=== PATIENT | female | born 1965 | race Caucasian/White ===

== ENCOUNTER 2018-08-15 08:25 | Emergency (ER) | payer BC ==
[2018-08-15 08:44] VITALS: BP 133/90
[2018-08-15] MEDS ORDERED: diphenhydrAMINE INJ 50 MG/ML VIAL IVP STA (08:48)
[2018-08-15] MEDS ORDERED: PROMETHAZINE INJ 25 MG in SODIUM CHLORIDE 0.9% 50 ML IV STA (08:48)
--- NOTE | 2018-08-15 08:48 | ED Physician Documentation ---
PD HPI NVD - Stated complaint Stated Complaint: N/V - Chief complaint Chief Complaint: Abd Pain - History obtained from History obtained from: Patient - History of Present Illness Timing - onset: Last night Timing - duration: Hours Timing - details: Gradual onset, Still present Associated symptoms: No: Fever, Abdominal pain, Chest pain, Hematemesis, Melena, Hematochezia, Dizzy, Near syncope / syncope Contributing factors: Other (patient states this happens whenever she eats fatty foods, last night had some buttery fish). No: Sick contact, Bad food, Travel, Recent antibiotics, Alcohol use, Anticoagulated, Diabetes Improved by: Other (nothing) Worsened by: Eating Similar symptoms before: No diagnosis (has had this for 3 months every time she eats fatty foods) Recently seen: No: Not recently seen - Treatment prior to arrival Treatment prior to arrival: none - Additonal information Additional information: Denies pain Review of Systems Ten Systems: 10 systems reviewed and negative Constitutional: denies: Fever, Chills GI: reports: Nausea, Vomiting. denies: Abdominal Pain, Diarrhea, Hematemesis, Bloody / black stool : denies: Dysuria Skin: denies: Rash PD PAST MEDICAL HISTORY - Past Medical History Past Medical History: No - Allergies Allergies/Adverse Reactions: Allergies Allergy/AdvReac Type Severity Reaction Status Date / Time No Known Drug Allergies Allergy Verified 08/15/18 08:44 PD ED PE NORMAL - Vitals Vital signs reviewed: Yes - General General: Alert and oriented X 3 - HEENT HEENT: Atraumatic - Neck Neck: Supple, no meningeal sign, No JVD - Cardiac Cardiac: RRR, No murmur - Respiratory Respiratory: No respiratory distress - Abdomen Abdomen: Soft, Non tender, Non distended - Female Female : Deferred - Rectal Rectal: Deferred - Derm Derm: Normal color, Warm and dry, No rash - Extremities Extremities: No edema - Neuro Neuro: Alert and oriented X 3 Eye Opening: Spontaneous Motor: Obeys Commands Verbal: Oriented GCS Score: 15 - Psych Psych: Normal mood, Normal affect Results - Vitals Vitals: Vital Signs - 24 hr 08/15/18 08/15/18 08:43 09:06 Temperature 36.9 C Heart Rate 80 Respiratory 18 18 Rate Blood Pressure 133/90 H O2 Saturation 100 Oxygen O2 Source Room air - Labs Labs: Laboratory Tests 08/15/18 08/15/18 09:02 09:02 WBC 18.1 H RBC 4.83 Hgb 14.6 Hct 43.8 MCV 90.7 MCH 30.2 MCHC 33.3 RDW 13.4 Plt Count 219 MPV 8.5 Neut # (Auto) 16.0 H Lymph # (Auto) 0.8 L [place] # (Auto) 1.1 H Eos # (Auto) 0.1 Baso # (Auto) 0.1 Absolute Nucleated RBC 0.00 Nucleated RBC % 0.0 Sodium 138 Potassium 3.6 Chloride 106 Carbon Dioxide 22 Anion Gap 10.0 BUN 19 Creatinine 0.7 Estimated GFR (MDRD) 87 L Glucose 112 H Calcium 8.8 Total Bilirubin 0.9 AST 27 ALT 27 Alkaline Phosphatase 58 Total Protein 6.3 L Albumin 4.0 Globulin 2.3 Albumin/Globulin Ratio 1.7 Lipase 31 moderate leukocytosis, suspect this is from recurrent vomiting. Pt afebrile with benign abdomen, repeat exam shows no tenderness. US of gallbladder normal. Procedures - General procedure General procedure: RUQ US shows normal gallbladder, no gallstones. GB wall thickness 0.25cm. PD MEDICAL DECISION MAKING - ED course ED course: 53 y/o F with recurrent nausea after eating fatty foods for 3 months. Reports no pain. Vomited several times after eating buttery fish last night. No fever, no diarrhea. DDx includes gastritis, pancreatitis, cholelthiasis, cholecystitis, GERD. Well appearing, soft nontender abdomen. US RUQ not c/w gallbladder disease. LFTs normal, lipase normal . Pt has leukocytosis but suspect this is due to vomiting as she is well appearing, afebrile with a benign exam and otherwise normal labs. Given antiemetics and will reassess. Departure - Departure Disposition: ED [place] Clinical Impression: Nausea & vomiting Qualifiers: Vomiting type: unspecified Vomiting Intractability: non-intractable Qualified Code(s): R11.2 - Nausea with vomiting, unspecified Condition: Stable Record reviewed to determine appropriate education?: Yes Instructions: ED Nausea Vomiting Ch Follow-Up: Jimmy Lerma ARNP [Primary Care Provider] - Comments: Your labs were normal except for a moderately elevated white blood cell count which is likely due to vomiting today. Your liver function, pancreas enzymes and electrolytes and kidney function were all normal. Your US shows a normal gallbladder. You should follow up with your primary care doctor for your symptoms. You can try over the counter benadryl for nausea if you do not wish to take prescription medication. Return to the ED if you develop pain or fever.
[2018-08-15 09:11] LABS: BASOPHILS # (AUTO) 0.1 10^3/uL (0.0-0.1); BASOPHILS % (AUTO) 0.6 %; EOSINOPHILS # (AUTO) 0.1 10^3/uL (0.0-0.7); EOSINOPHILS % (AUTO) 0.4 %; HGB - HEMOGLOBIN 14.6 g/dL (12.0-16.0); LYMPHOCYTES # (AUTO) 0.8 10^3/uL (1.5-3.5); LYMPHOCYTES % (AUTO) 4.4 %; MEAN CORPUSCULAR HEMOGLOBIN 30.2 pg (27.0-31.0); MEAN CORPUSCULAR HGB CONC 33.3 g/dL (32.0-36.0); MEAN CORPUSCULAR VOLUME 90.7 fL (81.0-99.0); MEAN PLATELET VOLUME 8.5 fL (7.9-10.8); MONOCYTES # (AUTO) 1.1 10^3/uL (0.0-1.0); MONOCYTES % (AUTO) 6.3 %; NEUTROPHILS % (AUTO) 88.3 %; PLT - PLATELET COUNT 219 10^3/uL (130-450); RED BLOOD COUNT 4.83 10^6/uL (4.20-5.40); RED CELL DISTRIBUTION WIDTH 13.4 % (12.0-15.0); WHITE BLOOD COUNT 18.1 x10^3/uL (4.8-10.8)
[2018-08-15 09:29] LABS: ALBUMIN/GLOBULIN RATIO 1.7 (1.0-2.2); BILIRUBIN,TOTAL 0.9 mg/dL (0.2-1.0); CALCIUM 8.8 mg/dL (8.5-10.3); CREATININE 0.7 mg/dL (0.4-1.0); TOTAL PROTEIN 6.3 g/dL (6.7-8.2)
== END 2018-08-15 10:13 | disposition home or self-care (01) ==
LOC: ED 08:25
DX: R11.2 Nausea with vomiting, unspecified (principal)
CPT/HCPCS: 36415; 80053; 83690; 85025; 99283; J1200; J7040

== ENCOUNTER 2018-11-05 09:16 | Outpatient (CLI) | payer BC ==
--- NOTE | 2018-11-06 14:59 | Ultrasound Report ---
Reason: RECURRENT LEFT UPPER AND LOWER ABDOMINAL PAIN THAT Procedure Date: 11/05/2018 Accession Number: [id number] / [id number] Procedure: US - Abdomen Complete CPT Code: FULL RESULT: EXAM: ABDOMEN ULTRASOUND EXAM DATE: 11/05/2018 10:24 AM. CLINICAL HISTORY: RECURRENT UPPER AND LOWER ABDOMINAL PAIN WITH NAUSEA AND VOMITING. COMPARISON: None. TECHNIQUE: Real-time scanning was performed with static images obtained. FINDINGS: Liver: Normal in size and echotexture. Simple appearing right hepatic cyst is seen measuring 2.8 x 2 x 2.7 cm, without internal increased vascularity.. Right liver measures 13.7 cm. Main portal vein flow: Hepatopetal. Gallbladder: Normal. No stones, wall thickening, or sonographic Juarez's sign. Biliary System: Common bile duct measures 4.5 mm. No intrahepatic or extrahepatic ductal dilatation. Pancreas: No discrete pancreatic masses are seen. No ductal dilation is evident. Punctate scattered echogenic foci seen within the pancreas of unclear etiology. No peripancreatic fluid is seen. Kidneys: Right: 9.4 cm longitudinally. Increased renal cortical echogenicity. No calculi, contour deforming mass, or hydronephrosis. Left: 9.8 cm longitudinally. Increased cortical echogenicity. No calculi, contour deforming mass, or hydronephrosis. Spleen: 8.3 x 3.4 x 2.8 cm. Splenic volume is 43.4 cc. Normal in size and echotexture. Aorta and Inferior Vena Cava: Unremarkable. Other: None. IMPRESSION: 1. Increased cortical echogenicity of the bilateral kidneys, right greater than left, could reflect nonspecific medical renal disease. No hydronephrosis seen bilaterally. No renal calculi evident. 2. Punctate foci of increased echogenicity seen within the pancreas of unclear etiology. Tiny microcalcifications are a consideration. No focal pancreatic lesion is seen nor peripancreatic fluid. CT could be obtained for further evaluation of this finding as clinically indicated. 3. No cholelithiasis nor evidence for acute cholecystitis. 4. Simple right hepatic cyst is noted. RADIA
== END 2018-11-05 09:17 | disposition home or self-care (01) ==
LOC: DI 09:16
PROVIDERS: ATTEND Nurse Practitioner Family
DX: R11.2 Nausea with vomiting, unspecified (principal); R10.32 Left lower quadrant pain; R10.12 Left upper quadrant pain; K76.89 Other specified diseases of liver
CPT/HCPCS: 76700

== ENCOUNTER 2018-11-25 10:56 | Outpatient (CLI) | payer BC ==
[2018-11-25] MEDS ORDERED: IOVERSOL 320 100 ML VIAL IVP ONE ×2 (11:15→16:42)
[2018-11-25] MEDS ORDERED: IOVERSOL 320 50 ML VIAL ONE (11:15)
[2018-11-25] MEDS ORDERED: IOVERSOL 320 50 ML VIAL PO ONE (16:42)
--- NOTE | 2018-11-27 05:28 | CT Report ---
Reason: NEW ONSET OF RECURRING LUQ PAIN Procedure Date: 11/25/2018 Accession Number: [id number] / [id number] Procedure: CT - ABDOMEN W CPT Code: FULL RESULT: EXAM: CT ABDOMEN WITH CONTRAST (DUAL PHASE CT) EXAM DATE: 11/25/2018 12:08 PM CLINICAL HISTORY: New onset recurring left upper quadrant abdominal pain. COMPARISONS: None. TECHNIQUE: Multiphasic CT of abdomen (pancreas) without and with IV contrast: 80 mL Optiray 320. Post contrast images are acquired during the portal venous as well as delayed phase of contrast enhancement. Enteric contrast: Present. Reconstructions: Coronal and sagittal. In accordance with CT protocol optimization, one or more of the following dose reduction techniques were utilized for this exam: automated exposure control, adjustment of mA and/or KV based on patient size, or use of iterative reconstructive technique. FINDINGS: ABDOMEN: Liver: There are a few scattered hepatic cysts. Dominant abnormality is within segment-6 of the liver, with a lobular configuration, measuring 2.7 cm (image 28 series 3). Stomach/Distal Esophagus: No significant abnormality. Gallbladder: No significant abnormality. Bile Ducts: No significant abnormality. Pancreas: No significant abnormality. Spleen: No significant abnormality. Kidneys: No suspicious solid appearing lesion. No hydronephrosis. Symmetric contrast excretion by the kidneys bilaterally. Adrenals: No significant abnormality. Bowel: No obstruction. Average fecal residual. Visualized portions of the appendix appear normal. Lymph Nodes: No pathologically enlarged nodes. Vasculature: Normal caliber aorta. Fluid: No significant free fluid. Abdominal Wall: No significant abnormality. Other: No significant abnormality. BONES: No suspicious bony lesions. LOWER CHEST: No significant consolidation or effusion. IMPRESSION: 1. No acute abdominal abnormality demonstrated. 2. A few scattered hepatic cysts are noted. RADIA
== END 2018-11-25 10:57 | disposition home or self-care (01) ==
LOC: DI 10:56
PROVIDERS: ATTEND Nurse Practitioner Family
DX: R10.12 Left upper quadrant pain (principal); K76.89 Other specified diseases of liver
CPT/HCPCS: 74160; Q9967

== ENCOUNTER 2019-01-31 21:05 | Emergency (ER) | payer BC ==
[2019-01-31 21:15] VITALS: BP 182/85
[2019-01-31] MEDS ORDERED: BUFFERED LIDOCAINE 10 ML SYRINGE SUBQ STA (21:27)
--- NOTE | 2019-01-31 21:29 | ED Physician Documentation ---
PD HPI UPPER EXT INJURY - Stated complaint Stated Complaint: LT INDEX FINGER LAC - Chief complaint Chief Complaint: Laceration - History obtained from History obtained from: Patient - History of Present Illness Location: Left (She cut herself on the left index finger with a sharp component at home just prior to arrival. She is up-to-date on tetanus.) Review of Systems Constitutional: reports: Reviewed and negative Ears: reports: Reviewed and negative Cardiac: reports: Reviewed and negative Respiratory: reports: Reviewed and negative PD PAST MEDICAL HISTORY - Present Medications Home Medications: Ambulatory Orders Medication Instructions Recorded Confirmed Estrogen Patch 01/31/19 - Allergies Allergies/Adverse Reactions: Allergies Allergy/AdvReac Type Severity Reaction Status Date / Time No Known Drug Allergies Allergy Verified 01/31/19 21:15 PD ED PE NORMAL - Vitals Vital signs reviewed: Yes - General General: Alert and oriented X 3, No acute distress - Extremities Extremities: Other (1 cm laceration on the proximal pulp palmar side of the left index finger without neurovascular compromise) - Neuro Neuro: Alert and oriented X 3, Normal speech Results - Vitals Vitals: Vital Signs - 24 hr 01/31/19 21:12 Temperature 36.6 C Heart Rate 58 L Respiratory 18 Rate Blood Pressure 182/85 H O2 Saturation 100 Oxygen O2 Source Room air PD MEDICAL DECISION MAKING - ED course ED course: On initial evaluation the wound was covered with a Steri-Strip. She wanted me to take it off and consider suturing it. She did not want take the Steri-Strip off until she was numbed and a digital block was done. After that the Steri- Strip was removed and it became clear that it did not need suturing, it was quite sallow, it was irrigated and replaced with Steri-Strips. Departure - Departure Disposition: 01 Home, Self Care Clinical Impression: Finger laceration Qualifiers: Encounter type: initial encounter Finger: index finger Damage to nail status: without damage Foreign body presence: without foreign body Laterality: left Qualified Code(s): S61.211A - Laceration without foreign body of left index finger without damage to nail, initial encounter Condition: Good Record reviewed to determine appropriate education?: Yes Instructions: ED Laceration Ext Sutr Stap Tape Comments: Your blood pressure was elevated today on check into the emergency department. This does not mean that you have hypertension, it is a common phenomenon to come to the emergency department and have elevated blood pressure. I recommend that you see your primary care physician within the week to have it rechecked when you are feeling better. Discharge Date/Time: 01/31/19 21:51
== END 2019-01-31 21:51 | disposition home or self-care (01) ==
LOC: ED 21:05
DX: S61.211A Laceration without foreign body of left index finger without damage to nail, initial encounter (principal); W27.8XXA Contact with other nonpowered hand tool, initial encounter; Y93.89 Activity, other specified; Y92.009 Unspecified place in unspecified non-institutional (private) residence as the place of occurrence of the external cause; R03.0 Elevated blood-pressure reading, without diagnosis of hypertension
CPT/HCPCS: 99282; 99283

== ENCOUNTER 2019-07-14 16:44 | Emergency (ER) | payer BC | END 2019-07-14 17:19 | disposition left against medical advice (07) | LOC: ED 16:44 | DX: Z53.21 Procedure and treatment not carried out due to patient leaving prior to being seen by health care provider (principal) ==

== ENCOUNTER 2019-07-27 08:36 | Emergency (ER) | payer BC ==
[2019-07-27 09:05] VITALS: BP 141/88
[2019-07-27 09:43] LABS: BASOPHILS # (AUTO) 0.1 10^3/uL (0.0-0.1); BASOPHILS % (AUTO) 0.8 %; EOSINOPHILS % (AUTO) 0.1 %; HGB - HEMOGLOBIN 14.4 g/dL (12.0-16.0); LYMPHOCYTES # (AUTO) 1.3 10^3/uL (1.5-3.5); LYMPHOCYTES % (AUTO) 17.6 %; MEAN CORPUSCULAR HEMOGLOBIN 31.2 pg (27.0-31.0); MEAN CORPUSCULAR HGB CONC 33.3 g/dL (32.0-36.0); MEAN CORPUSCULAR VOLUME 93.5 fL (81.0-99.0); MEAN PLATELET VOLUME 9.7 fL (7.9-10.8); MONOCYTES # (AUTO) 0.6 10^3/uL (0.0-1.0); MONOCYTES % (AUTO) 8.3 %; NEUTROPHILS # (AUTO) 5.1 10^3/uL (1.5-6.6); NEUTROPHILS % (AUTO) 72.5 %; PLT - PLATELET COUNT 316 10^3/uL (130-450); RED BLOOD COUNT 4.62 10^6/uL (4.20-5.40); RED CELL DISTRIBUTION WIDTH 12.5 % (12.0-15.0); WHITE BLOOD COUNT 7.1 x10^3/uL (4.8-10.8)
[2019-07-27 09:48] LABS: BILIRUBIN,URINE NEGATIVE (NEGATIVE); CLARITY,URINE CLEAR (CLEAR); GLUCOSE, URINE (UA) NEGATIVE (NEGATIVE); KETONES,URINE (UA) NEGATIVE (NEGATIVE); LEUKOCYTE ESTERASE, URINE TRACE (NEGATIVE); NITRITE,URINE NEGATIVE (NEGATIVE); OCCULT BLOOD,URINE NEGATIVE (NEGATIVE); PROTEIN,URINE NEGATIVE (NEGATIVE); UROBILINOGEN,URINE 0.2 (NORMAL) E.U./dL (NORMAL)
--- NOTE | 2019-07-27 09:51 | ED Physician Documentation ---
PD HPI NVD - Stated complaint Stated Complaint: POST OP COMPLICATIONS - Chief complaint Chief Complaint: General - History obtained from History obtained from: Patient - History of Present Illness Timing - onset: How many months ago (1-2 months of progressive weight los and general weakness. The weakness has become more notable in the past 4-5 days, since having arthroscopic surgery left hip on the . Has crutches to minimize weight bearing on left hip and is having problems using them due to poor arm strength and general fatigue. 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 Has taken protein supplements. Medications: had been taking Celebrex for hip pain and added Pepcid to it so not to irritate the stomach. Had those for few weeks.) Contributing factors: Other (denies diarrhea. Her has not experienced any unusual weight loss nor bowel changes.). No: Sick contact, Bad food, Travel, Recent antibiotics Worsened by: No: Eating Similar symptoms before: Has not had sx before Recently seen: Surgery (She had outpatient arthroscopic hip surgery for torn labrum and some osteophyte bone buildup. This was on the and she felt fatigued afterward but felt expected that she would. However she is continued with fatigue more so than preoperatively so is considerably increased over the baseline past month. However this has been a progressive problem over the past month or 2 of general weight loss and fatigue.) Review of Systems Constitutional: reports: Fatigue, Weight Loss. denies: Fever, Chills, Myalgias, Sweats Nose: denies: Rhinorrhea / runny nose, Congestion Throat: denies: Sore throat Cardiac: denies: Chest pain / pressure, Palpitations Respiratory: denies: Cough GI: denies: Abdominal Pain, Nausea, Vomiting, Diarrhea, Bloody / black stool : denies: Dysuria, Frequency Skin: denies: Rash, Lesions Neurologic: reports: Generalized weakness. denies: Focal weakness, Numbness, Altered mental status, Headache Endocrine: reports: Weight loss. denies: Weight gain, Easy bruising / bleeding Immunocompromised: denies: Immunocompromised PD PAST MEDICAL HISTORY - Past Medical History Past Medical History: Yes Cardiovascular: None Respiratory: None Neuro: Migraines Endocrine/Autoimmune: None GI: GERD : None HEENT: None Psych: Depression, Anxiety Musculoskeletal: Other Derm: None Other Past Medical History: Acetabular-femoral impingement - Past Surgical History Past Surgical History: Yes Ortho: Arthroscopic surgery /[employer]: Hysterectomy - Present Medications Home Medications: Ambulatory Orders Medication Instructions Recorded Confirmed Estrogen Patch 01/31/19 - Allergies Allergies/Adverse Reactions: Allergies Allergy/AdvReac Type Severity Reaction Status Date / Time No Known Drug Allergies Allergy Verified 01/31/19 21:15 - Social History Does the pt smoke?: No Smoking Status: Never smoker Does the pt drink ETOH?: No Does the pt have substance abuse?: No - Immunizations Immunizations are current?: Yes PD ED PE NORMAL - Vitals Vital signs reviewed: Yes - General General: Alert and oriented X 3, Well developed/nourished, Other (very thin ap pearing. ) - HEENT HEENT: Moist mucous membranes, Pharynx benign - Neck Neck: Supple, no meningeal sign, No adenopathy, Thyroid normal - Cardiac Cardiac: RRR, No murmur - Respiratory Respiratory: Clear bilaterally - Abdomen Abdomen: Normal bowel sounds, Soft, Non tender, Non distended, No organomegaly - Female Female : Deferred - Rectal Rectal: Deferred - Back Back: No CVA TTP - Derm Derm: Normal color, Warm and dry - Extremities Extremities: No edema, Other (The left hip shows arthroscopic incisions with Tegaderm over them. There is some mild yellow to greenish bruising in the area. No redness or swelling to suggest infection.) - Neuro Neuro: Alert and oriented X 3, No motor deficit, Normal speech Eye Opening: Spontaneous Motor: Obeys Commands Verbal: Oriented GCS Score: 15 Results - Vitals Vitals: Vital Signs - 24 hr 07/27/19 07/27/19 08:42 08:49 Temperature 36.9 C 36.8 C Heart Rate 108 H 108 H Respiratory 20 20 Rate Blood Pressure 161/97 H 141/88 H O2 Saturation 99 99 Oxygen O2 Source Room air - Labs Labs: Laboratory Tests 07/27/19 07/27/19 07/27/19 09:30 09:35 09:35 WBC 7.1 RBC 4.62 Hgb 14.4 Hct 43.2 MCV 93.5 MCH 31.2 H MCHC 33.3 RDW 12.5 Plt Count 316 MPV 9.7 Neut # (Auto) 5.1 Lymph # (Auto) 1.3 L [place] # (Auto) 0.6 Eos # (Auto) 0.0 Baso # (Auto) 0.1 Absolute Nucleated RBC 0.00 Nucleated RBC % 0.0 ESR Sodium 138 Potassium 3.4 L Chloride 103 Carbon Dioxide 28 Anion Gap 7.0 BUN 19 Creatinine 0.6 Estimated GFR (MDRD) 104 Glucose 102 H Calcium 8.9 Magnesium 2.4 Total Bilirubin 0.7 AST 17 ALT 17 Alkaline Phosphatase 62 Total Creatine Kinase 63 Total Protein 6.6 L Albumin 4.2 Globulin 2.4 Albumin/Globulin Ratio 1.8 Lipase 35 CA 125 Antigen Vitamin B12 TSH Cortisol Urine Color YELLOW Urine Clarity CLEAR Urine pH 7.0 Ur Specific [place] <=1.005 Urine Protein NEGATIVE Urine Glucose (UA) NEGATIVE Urine Ketones NEGATIVE Urine Occult Blood NEGATIVE Urine Nitrite NEGATIVE Urine Bilirubin NEGATIVE Urine Urobilinogen 0.2 (NORMAL) Ur Leukocyte Esterase TRACE H Urine RBC 0-5 Urine WBC 0-3 Ur Squamous Epith Cells FEW Squamous Urine Bacteria Few Ur Microscopic Review INDICATED Urine Culture Comments INDICATED 07/27/19 07/27/19 09:35 09:35 WBC RBC Hgb Hct MCV MCH MCHC RDW Plt Count MPV Neut # (Auto) Lymph # (Auto) [place] # (Auto) Eos # (Auto) Baso # (Auto) Absolute Nucleated RBC Nucleated RBC % ESR 4 Sodium Potassium Chloride Carbon Dioxide Anion Gap BUN Creatinine Estimated GFR (MDRD) Glucose Calcium Magnesium Total Bilirubin AST ALT Alkaline Phosphatase Total Creatine Kinase Total Protein Albumin Globulin Albumin/Globulin Ratio Lipase CA 125 Antigen 9.4 Vitamin B12 2163 H TSH 1.43 Cortisol 8.0 Urine Color Urine Clarity Urine pH Ur Specific [place] Urine Protein Urine Glucose (UA) Urine Ketones Urine Occult Blood Urine Nitrite Urine Bilirubin Urine Urobilinogen Ur Leukocyte Esterase Urine RBC Urine WBC Ur Squamous Epith Cells Urine Bacteria Ur Microscopic Review Urine Culture Comments PD MEDICAL DECISION MAKING - ED course Complexity details: reviewed results, re-evaluated patient (unclear cause of her weight loss and weakness. ), considered differential (Unusual and unwanted weight loss over the last month or more totaling about 19 pounds. She states at baseline she is usually thin but is commonly about 115 pounds. That has been her baseline weight for a long time without much fluctuation. We will look for metabolic disorders such as electrolyte problems. Endocrine processes such as thyroid or pituitary correction adrenal problems as well. Consider malabsorption but she already has a gluten free diet. She does not have diarrhea to suggest chronic losses that way. Can check vitamin levels on some of the mario ones such as B12 and vitamin D. These could be used as markers for other vitamin deficiencies. She does not have any neurologic symptoms so I would less likely think of heavy metal problems and she states they have had their well water checked in the past with a slightly high arsenic. Her has not had any similar symptoms though.), d/w patient Departure - Departure Disposition: Home, Self Care Clinical Impression: Weight loss, abnormal, Generalized weakness, Status post hip surgery Condition: Stable Record reviewed to determine appropriate education?: Yes Follow-Up: Jimmy Lerma ARNP [Primary Care Provider] - Comments: Stop the Celebrex. Stay well-hydrated. Add a mild potassium supplement as your potassium was minimally below normal. Follow-up with your primary care regarding further evaluation of the weight loss. No obvious acute process at this time based on your initial lab tests. Stool studies would probably be next indicated to look for infection or malabsorption. Discharge Date/Time: 07/27/19 11:13
[2019-07-27 09:55] LABS: ALBUMIN 4.2 g/dL (3.2-5.5); ALBUMIN/GLOBULIN RATIO 1.8 (1.0-2.2); BILIRUBIN,TOTAL 0.7 mg/dL (0.2-1.0); CALCIUM 8.9 mg/dL (8.5-10.3); CREATININE 0.6 mg/dL (0.4-1.0); MAGNESIUM 2.4 mg/dL (1.7-2.8); TOTAL PROTEIN 6.6 g/dL (6.7-8.2)
[2019-07-27 10:10] LABS: CA 125 9.4 U/mL (0.0-35.0)
[2019-07-27 10:12] LABS: THYROID STIMULATING HORMONE 1.43 uIU/mL (0.34-5.60)
[2019-07-27 10:24] LABS: BACTERIA,URINE Few /HPF (None Seen); RBC,URINE 0-5 /HPF (0-5); SQUAMOUS EPITHELIAL CELL,UR FEW Squamous (<= Few)
== END 2019-07-27 11:13 | disposition home or self-care (01) ==
LOC: ED 08:36
DX: R63.4 Abnormal weight loss (principal); R53.1 Weakness; R53.83 Other fatigue; Z98.890 Other specified postprocedural states
CPT/HCPCS: 36415; 80053; 81001; 81003; 82533; 82550; 82607; 82652; 82705; 83690; 83735; 84443; 85025; 85651; 86304; 87086; 99283; 99284

== ENCOUNTER 2019-08-24 16:42 | Emergency (ER) | payer BC ==
[2019-08-24 17:14] LABS: BASOPHILS # (AUTO) 0.1 10^3/uL (0.0-0.1); BASOPHILS % (AUTO) 0.9 %; EOSINOPHILS # (AUTO) 0.2 10^3/uL (0.0-0.7); EOSINOPHILS % (AUTO) 2.2 %; HGB - HEMOGLOBIN 13.8 g/dL (12.0-16.0); LYMPHOCYTES # (AUTO) 1.8 10^3/uL (1.5-3.5); LYMPHOCYTES % (AUTO) 23.2 %; MEAN CORPUSCULAR HEMOGLOBIN 31.4 pg (27.0-31.0); MEAN PLATELET VOLUME 9.3 fL (7.9-10.8); MONOCYTES # (AUTO) 0.6 10^3/uL (0.0-1.0); MONOCYTES % (AUTO) 7.6 %; NEUTROPHILS # (AUTO) 5.1 10^3/uL (1.5-6.6); NEUTROPHILS % (AUTO) 65.5 %; PLT - PLATELET COUNT 316 10^3/uL (130-450); RED CELL DISTRIBUTION WIDTH 12.8 % (12.0-15.0); WHITE BLOOD COUNT 7.9 x10^3/uL (4.8-10.8)
[2019-08-24 17:30] LABS: ACETAMINOPHEN < 10 ug/mL (10-30); ALBUMIN/GLOBULIN RATIO 1.5 (1.0-2.2); ALKALINE PHOSPHATASE 66 IU/L (42-121); ALT ALANINE AMINOTRANSFERASE 18 IU/L (10-60); AST ASPARTATE AMINOTRANSFERASE 18 IU/L (10-42); BILIRUBIN,TOTAL 0.6 mg/dL (0.2-1.0); BUN - BLOOD UREA NITROGEN 19 mg/dL (6-20); CARBON DIOXIDE - CO2 28 mmol/L (21-32); CHLORIDE 100 mmol/L (101-111); CREATININE 0.7 mg/dL (0.4-1.0); GLUCOSE 105 mg/dL (70-100); LIPASE 39 U/L (22-51); SALICYLATE < 6.0 mg/dL; SODIUM 137 mmol/L (135-145); TOTAL PROTEIN 6.7 g/dL (6.7-8.2)
[2019-08-24 18:01] LABS: MUDS CUTOFF CONCENTRATIONS CUTOFF CONC BELOW:
--- NOTE | 2019-08-24 18:01 | ED Physician Documentation ---
PD HPI MHE - Stated complaint Stated Complaint: MHE - Chief complaint Chief Complaint: MHE - History obtained from History obtained from: Patient, Family - History of Present Illness Primary symptom: Depression, Anxiety, Medical clearance Timing - onset: How many months ago (3 months, worse over the past week) Pain level max: 0 Pain level now: 0 Contributing factors: No: Legal, Substance abuse - ETOH, Substance abuse - drugs, Off meds Recently seen: Clinic - Additional information Additional information: 54-year-old female states she has had increasing anxiety over the past few months. States that she feels like it is interfering with her daily life now. She states she does not want to be suicidal, but occasionally feels suicidal. She tried Wellbutrin, but states that it made her suicidal. She had been on Klonopin as well, but she states she takes only 1/8 of a pill. She saw a psychiatrist yesterday in [place] who recommends that she be admitted to a psychiatric hospital for stabilization. Review of Systems Ten Systems: 10 systems reviewed and negative Constitutional: denies: Fever, Chills Nose: denies: Rhinorrhea / runny nose, Congestion Cardiac: denies: Chest pain / pressure Respiratory: denies: Cough GI: denies: Vomiting, Diarrhea : denies: Now EGA Skin: denies: Rash Musculoskeletal: denies: Neck pain, Back pain Neurologic: denies: Headache PD PAST MEDICAL HISTORY - Past Medical History Cardiovascular: None Respiratory: None Neuro: Migraines Endocrine/Autoimmune: None GI: GERD : None HEENT: None Psych: Depression, Anxiety Musculoskeletal: Other Derm: None - Past Surgical History Past Surgical History: Yes 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 - Present Medications Home Medications: Ambulatory Orders Medication Instructions Recorded Confirmed Estrogen Patch 01/31/19 - Allergies Allergies/Adverse Reactions: Allergies Allergy/AdvReac Type Severity Reaction Status Date / Time No Known Drug Allergies Allergy Verified 01/31/19 21:15 - Social History Does the pt smoke?: No Smoking Status: Never smoker Does the pt drink ETOH?: No Does the pt have substance abuse?: No - Immunizations Immunizations are current?: Yes Results - Vitals Vitals: Vital Signs - 24 hr 08/24/19 08/24/19 16:49 20:26 Temperature 36.9 C 36.5 C Heart Rate 88 90 Respiratory 18 18 Rate Blood Pressure 163/104 H 150/110 H O2 Saturation 99 100 Oxygen O2 Source Room air - EKG (time done) 1806 Rate: Rate (enter#) (73) Rhythm: NSR [place]: Normal Intervals: Normal [place] QRS: Normal Ischemia: Normal ST segments - Labs Labs: Laboratory Tests 08/24/19 08/24/19 08/24/19 17:09 17:09 17:09 WBC 7.9 RBC 4.40 Hgb 13.8 Hct 41.8 MCV 95.0 MCH 31.4 H MCHC 33.0 RDW 12.8 Plt Count 316 MPV 9.3 Neut # (Auto) 5.1 Lymph # (Auto) 1.8 [place] # (Auto) 0.6 Eos # (Auto) 0.2 Baso # (Auto) 0.1 Absolute Nucleated RBC 0.00 Nucleated RBC % 0.0 Sodium 137 Potassium 4.0 Chloride 100 L Carbon Dioxide 28 Anion Gap 9.0 BUN 19 Creatinine 0.7 Estimated GFR (MDRD) 87 L Glucose 105 H Calcium 9.0 Total Bilirubin 0.6 AST 18 ALT 18 Alkaline Phosphatase 66 Total Protein 6.7 Albumin 4.0 Globulin 2.7 Albumin/Globulin Ratio 1.5 Lipase 39 TSH 2.10 Urine Color Urine Clarity Urine pH Ur Specific [place] Urine Protein Urine Glucose (UA) Urine Ketones Urine Occult Blood Urine Nitrite Urine Bilirubin Urine Urobilinogen Ur Leukocyte Esterase Urine RBC Urine WBC Ur Squamous Epith Cells Urine Bacteria Ur Microscopic Review Urine Culture Comments Salicylates < 6.0 Urine Opiates Screen Ur Oxycodone Screen Urine Methadone Screen Ur Propoxyphene Screen Acetaminophen < 10 L Ur Barbiturates Screen Ur Tricyclics Screen Ur Phencyclidine Scrn Ur Amphetamine Screen U Methamphetamines Scrn U Benzodiazepines Scrn Urine Cocaine Screen U Cannabinoids Screen Ethyl Alcohol < 5.0 08/24/19 17:56 WBC RBC Hgb Hct MCV MCH MCHC RDW Plt Count MPV Neut # (Auto) Lymph # (Auto) [place] # (Auto) Eos # (Auto) Baso # (Auto) Absolute Nucleated RBC Nucleated RBC % Sodium Potassium Chloride Carbon Dioxide Anion Gap BUN Creatinine Estimated GFR (MDRD) Glucose Calcium Total Bilirubin AST ALT Alkaline Phosphatase Total Protein Albumin Globulin Albumin/Globulin Ratio Lipase TSH Urine Color YELLOW Urine Clarity CLEAR Urine pH 7.0 Ur Specific [place] <=1.005 Urine Protein NEGATIVE Urine Glucose (UA) NEGATIVE Urine Ketones NEGATIVE Urine Occult Blood NEGATIVE Urine Nitrite NEGATIVE Urine Bilirubin NEGATIVE Urine Urobilinogen 0.2 (NORMAL) Ur Leukocyte Esterase MODERATE H Urine RBC None Seen Urine WBC 6-10 H Ur Squamous Epith Cells MOD Squamous H Urine Bacteria Rare Ur Microscopic Review INDICATED Urine Culture Comments NOT INDICATED Salicylates Urine Opiates Screen NEGATIVE Ur Oxycodone Screen NEGATIVE Urine Methadone Screen NEGATIVE Ur Propoxyphene Screen NEGATIVE Acetaminophen Ur Barbiturates Screen NEGATIVE Ur Tricyclics Screen NEGATIVE Ur Phencyclidine Scrn NEGATIVE Ur Amphetamine Screen NEGATIVE U Methamphetamines Scrn NEGATIVE U Benzodiazepines Scrn NEGATIVE Urine Cocaine Screen NEGATIVE U Cannabinoids Screen NEGATIVE Ethyl Alcohol PD MEDICAL DECISION MAKING - ED course Complexity details: reviewed results, re-evaluated patient, considered differential, d/w patient ED course: Paperwork received from the patient's psychiatrist. This was reviewed and was sent to the psychiatric facilities for voluntary placement. She does feel better after Xanax here. Patient is medically clear for psychiatric care. Patient will be signed out to the [facility] emergency department physician awaiting final disposition. She is cooperative here. This document was made in part using voice recognition software. While efforts are made to proofread this document, sound alike and grammatical errors may occur. Departure - Departure Clinical Impression: Anxiety, Mood disorder Depression Qualifiers: Depression Type: unspecified Qualified Code(s): F32.9 - Major depressive disorder, single episode, unspecified Condition: Stable
[2019-08-24] MEDS ORDERED: ALPRAZolam 0.25 MG TABLET PO STA (18:03)
[2019-08-24 18:04] LABS: BILIRUBIN,URINE NEGATIVE (NEGATIVE); GLUCOSE, URINE (UA) NEGATIVE (NEGATIVE); KETONES,URINE (UA) NEGATIVE (NEGATIVE); LEUKOCYTE ESTERASE, URINE MODERATE (NEGATIVE); NITRITE,URINE NEGATIVE (NEGATIVE); OCCULT BLOOD,URINE NEGATIVE (NEGATIVE); PROTEIN,URINE NEGATIVE (NEGATIVE); UROBILINOGEN,URINE 0.2 (NORMAL) E.U./dL (NORMAL)
[2019-08-24 18:10] LABS: CLARITY,URINE CLEAR (CLEAR)
[2019-08-24 18:17] LABS: BACTERIA,URINE Rare /HPF (None Seen); RBC,URINE None Seen /HPF (0-5); SQUAMOUS EPITHELIAL CELL,UR MOD Squamous (<= Few)
[2019-08-24 18:18] LABS: AMPHETAMINE SCREEN,URINE NEGATIVE (NEGATIVE); BENZODIAZEPINES SCREEN, URINE NEGATIVE (NEGATIVE); COCAINE SCREEN URINE NEGATIVE (NEGATIVE); METHADONE SCREEN, URINE NEGATIVE (NEGATIVE); METHAMPHETAMINES SCREEN, URINE NEGATIVE (NEGATIVE); OPIATE SCREEN, URINE NEGATIVE (NEGATIVE); OXYCODONE SCREEN, URINE NEGATIVE (NEGATIVE); PROPOXYPHENE SCREEN, URINE NEGATIVE (NEGATIVE); TRICYCLIC ANTIDEPRESSANT,URINE NEGATIVE (NEGATIVE)
[2019-08-24] MEDS ORDERED: cloNIDine 0.1 MG TABLET PO STA (22:55)
[2019-08-24] MEDS ORDERED: amLODIPine 5 MG TABLET PO STA (23:06)
[2019-08-25 00:31] VITALS: BP 151/99
--- NOTE | 2019-08-25 22:00 | ED Physician Documentation ---
ED Addendum - Addendum Addendum: 08/25/19 21:58 Received sign out from Dr. Simons. Voluntary inpatient placement at appropriate mental health facility is being pursued by ED RN. Eventually, it was determined by ED RN that no beds available at these facilities with the exception of [facility]. Subsequently, [facility] called back and felt that the patient was not appropriate for their facility due to lack of SI. Rashaad Beltran expressed concern regarding patient's high blood pressure readings. I ordered clonidine, but patient expressed concern in how this medication is processed and her genetics. Amlodipine was then suggested and she is agreeable to take this medication. Her blood pressure improved, but Rashaad Devin subsequently set a parameter of DBP<90. At this point, I had a long conversation with the patient, updated her on the above. My suggestion was redose xanax (as her anxiety is likely contributing to her elevated BP readings), and possibly a second dose of amlodipine. She tells me she would refuse to go to [facility] even if they were to accept her. She says her psychiatrist had discussed starting her on a medication that would require following "blood levels" (per patient), and she is concerned that [facility] would be unable to perform serum testing. Additionally, she was worried about reviews of the facility she had read on line. She denies SI to me and, although anxious, has a logical thought process including awareness of the anxiety and the problems it presents for her, her spouse, and her doctor. She says she had been able to control her anxiety through exercise (as a distraction), but she recently reinjured her hip and this has been preventing her from exercise. She also has had much difficulty in obtaining f/u for her hip problem because of COVID restrictions. She feels this is a main factor in her anxiety being out of control of late. I recommended that she stay in ED until the AM; SW would then be consulted, beds at facilities would possibly become available as patients are discharged, and her doctor could be contacted by SW to discuss possible other arrangements if inpatient beds were still unavailable. Eventually, patient requested discharge home and says her is returning to ED to pick her up. She repeatedly tells me she feels safe going home. I do not have any reason to hold patient against her wishes and she expresses understanding that she is encouraged to return at any time for reevaluation
--- NOTE | 2019-08-27 15:36 | ED Physician Documentation ---
PD ED PE NORMAL - Vitals Vital signs reviewed: Yes - General General: Alert and oriented X 3, Other (Patient is very anxious appearing) - HEENT HEENT: PERRL, Moist mucous membranes, Pharynx benign - Neck Neck: Supple, no meningeal sign - Cardiac Cardiac: RRR - Respiratory Respiratory: No respiratory distress, Clear bilaterally - Abdomen Abdomen: Soft, Non tender, Non distended - Derm Derm: Warm and dry - Extremities Extremities: No edema, No calf tenderness / cord - Neuro Neuro: Alert and oriented X 3 - Psych Psych: Other (Very anxious)
== END 2019-08-25 02:33 | disposition home or self-care (01) ==
LOC: ED 16:42
DX: F41.9 Anxiety disorder, unspecified (principal); F39 Unspecified mood [affective] disorder; F32.9 Major depressive disorder, single episode, unspecified; R03.0 Elevated blood-pressure reading, without diagnosis of hypertension
CPT/HCPCS: 36415; 80320; 80329; 81001; 83690; 93005; 99283; 99284; A9270; 80053; 80306; 80307; 81003; 84443; 85025; 87086

== ENCOUNTER 2019-08-27 08:31 | Emergency (ER) | payer BC ==
--- NOTE | 2019-08-27 08:59 | ED Physician Documentation ---
PD HPI MHE - Stated complaint Stated Complaint: PANIC ATTACK - Chief complaint Chief Complaint: MHE - History obtained from History obtained from: Patient, Family - History of Present Illness Primary symptom: Anxiety Timing - onset: How many weeks ago (Ongoing for the past several weeks) Pain level max: 0 Pain level now: 0 - Additional information Additional information: 54-year-old female presents to the emergency department stating that she has a longstanding history of anxiety, worsening over the past several weeks. Nothing makes it better or worse. She tried to take Ativan this morning without relief. She feels that she is out of control and cannot calm herself down. She denies feeling suicidal or homicidal. She was seen here recently for same, but was having issues finding voluntary placement, therefore she elected to go home. She is accompanied by her today. 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 - Present Medications Home Medications: Ambulatory Orders Medication Instructions Recorded Confirmed Estrogen Patch 01/31/19 - Allergies Allergies/Adverse Reactions: Allergies Allergy/AdvReac Type Severity Reaction Status Date / Time No Known Drug Allergies Allergy Verified 08/27/19 08:48 - Social History Does the pt smoke?: No Smoking Status: Never smoker Does the pt drink ETOH?: No Does the pt have substance abuse?: No - Immunizations Immunizations are current?: Yes PD ED PE NORMAL - Vitals Vital signs reviewed: Yes - General General: Alert and oriented X 3, No acute distress, Well developed/nourished - HEENT HEENT: PERRL, Moist mucous membranes - Neck Neck: Supple, no meningeal sign - Cardiac Cardiac: RRR - Respiratory Respiratory: No respiratory distress, Clear bilaterally - Abdomen Abdomen: Soft, Non tender, Non distended - Derm Derm: Warm and dry - Extremities Extremities: No deformity - Neuro Neuro: Alert and oriented X 3 - Psych Psych: Other (Patient is very anxious and tearful.) Results - Vitals Vitals: Vital Signs - 24 hr 08/27/19 08/27/19 08/27/19 08:43 08:48 10:48 Temperature 36.9 C Heart Rate 112 H 109 H 89 Respiratory 22 16 16 Rate Blood Pressure 138/102 H 146/95 H 142/65 H O2 Saturation 100 100 100 08/27/19 08/27/19 08/27/19 13:27 13:32 15:18 Temperature 37.1 C Heart Rate 83 82 66 Respiratory 16 12 16 Rate Blood Pressure 144/93 H 144/93 H 134/90 H O2 Saturation 99 99 99 08/27/19 17:16 Temperature 37.1 C Heart Rate 84 Respiratory 12 Rate Blood Pressure 133/96 H O2 Saturation 100 Oxygen O2 Source Room air - EKG (time done) 0909 Rate: Rate (enter#) (99) Rhythm: NSR [place]: Normal Intervals: Normal [place] QRS: Normal Ischemia: Normal ST segments - Labs Labs: Laboratory Tests 08/27/19 08/27/19 08/27/19 08:52 08:52 09:04 WBC 7.4 RBC 4.39 Hgb 13.7 Hct 40.3 MCV 91.8 MCH 31.2 H MCHC 34.0 RDW 12.4 Plt Count 330 MPV 9.1 Neut # (Auto) 5.6 Lymph # (Auto) 1.3 L [place] # (Auto) 0.4 Eos # (Auto) 0.0 Baso # (Auto) 0.1 Absolute Nucleated RBC 0.00 Nucleated RBC % 0.0 Sodium Potassium Chloride Carbon Dioxide Anion Gap BUN Creatinine Estimated GFR (MDRD) Glucose Calcium Total Bilirubin AST ALT Alkaline Phosphatase Total Protein Albumin Globulin Albumin/Globulin Ratio Lipase TSH Urine Color YELLOW Urine Clarity HAZY Urine pH 8.0 H Ur Specific [place] 1.010 Urine Protein NEGATIVE Urine Glucose (UA) NEGATIVE Urine Ketones NEGATIVE Urine Occult Blood NEGATIVE Urine Nitrite NEGATIVE Urine Bilirubin NEGATIVE Urine Urobilinogen 0.2 (NORMAL) Ur Leukocyte Esterase LARGE H Urine RBC 0-5 Urine WBC 6-10 H Ur Squamous Epith Cells FEW Squamous Urine Bacteria Few Ur Microscopic Review INDICATED Urine Culture Comments INDICATED Urine HCG, Qual NEGATIVE Salicylates Urine Opiates Screen NEGATIVE Ur Oxycodone Screen NEGATIVE Urine Methadone Screen NEGATIVE Ur Propoxyphene Screen NEGATIVE Acetaminophen Ur Barbiturates Screen NEGATIVE Ur Tricyclics Screen NEGATIVE Ur Phencyclidine Scrn NEGATIVE Ur Amphetamine Screen NEGATIVE U Methamphetamines Scrn NEGATIVE U Benzodiazepines Scrn NEGATIVE Urine Cocaine Screen NEGATIVE U Cannabinoids Screen NEGATIVE Ethyl Alcohol 08/27/19 08/27/19 09:04 09:04 WBC RBC Hgb Hct MCV MCH MCHC RDW Plt Count MPV Neut # (Auto) Lymph # (Auto) [place] # (Auto) Eos # (Auto) Baso # (Auto) Absolute Nucleated RBC Nucleated RBC % Sodium 139 Potassium 3.3 L Chloride 105 Carbon Dioxide 27 Anion Gap 7.0 BUN 17 Creatinine 0.6 Estimated GFR (MDRD) 104 Glucose 119 H Calcium 8.9 Total Bilirubin 0.5 AST 18 ALT 19 Alkaline Phosphatase 60 Total Protein 6.7 Albumin 4.3 Globulin 2.4 Albumin/Globulin Ratio 1.8 Lipase 34 TSH 2.93 Urine Color Urine Clarity Urine pH Ur Specific [place] Urine Protein Urine Glucose (UA) Urine Ketones Urine Occult Blood Urine Nitrite Urine Bilirubin Urine Urobilinogen Ur Leukocyte Esterase Urine RBC Urine WBC Ur Squamous Epith Cells Urine Bacteria Ur Microscopic Review Urine Culture Comments Urine HCG, Qual Salicylates < 6.0 Urine Opiates Screen Ur Oxycodone Screen Urine Methadone Screen Ur Propoxyphene Screen Acetaminophen < 10 L Ur Barbiturates Screen Ur Tricyclics Screen Ur Phencyclidine Scrn Ur Amphetamine Screen U Methamphetamines Scrn U Benzodiazepines Scrn Urine Cocaine Screen U Cannabinoids Screen Ethyl Alcohol < 5.0 PD MEDICAL DECISION MAKING - ED course Complexity details: reviewed results, re-evaluated patient, considered differential, d/w patient, d/w [employer] distribution consultant ED course: Patient feels better after Ativan in the emergency department. She is medically clear for psychiatric care. Social work consulted. Patient was accepted to [facility] for further evaluation and care. She also has a UTI and was started on Macrobid for this. Patient accepted to [facility] by Dr. Erik Cobb at 1730. COBRA forms completed. Patient will be transferred. This document was made in part using voice recognition software. While efforts are made to proofread this document, sound alike and grammatical errors may occur. Departure - Departure Disposition: [facility] Hosp/Unit DC/Xfer Clinical Impression: Anxiety UTI (urinary tract infection) Qualifiers: Urinary tract infection type: acute cystitis Hematuria presence: without hematuria Qualified Code(s): N30.00 - Acute cystitis without hematuria Condition: Stable
[2019-08-27 09:03] LABS: MUDS CUTOFF CONCENTRATIONS CUTOFF CONC BELOW:
[2019-08-27 09:06] LABS: BILIRUBIN,URINE NEGATIVE (NEGATIVE); GLUCOSE, URINE (UA) NEGATIVE (NEGATIVE); KETONES,URINE (UA) NEGATIVE (NEGATIVE); LEUKOCYTE ESTERASE, URINE LARGE (NEGATIVE); NITRITE,URINE NEGATIVE (NEGATIVE); OCCULT BLOOD,URINE NEGATIVE (NEGATIVE); PROTEIN,URINE NEGATIVE (NEGATIVE); UROBILINOGEN,URINE 0.2 (NORMAL) E.U./dL (NORMAL)
[2019-08-27 09:10] LABS: CLARITY,URINE HAZY (CLEAR); HCG UR QUAL NEGATIVE
[2019-08-27 09:12] LABS: BASOPHILS # (AUTO) 0.1 10^3/uL (0.0-0.1); BASOPHILS % (AUTO) 0.7 %; EOSINOPHILS % (AUTO) 0.3 %; HGB - HEMOGLOBIN 13.7 g/dL (12.0-16.0); LYMPHOCYTES # (AUTO) 1.3 10^3/uL (1.5-3.5); MEAN CORPUSCULAR HEMOGLOBIN 31.2 pg (27.0-31.0); MEAN CORPUSCULAR VOLUME 91.8 fL (81.0-99.0); MEAN PLATELET VOLUME 9.1 fL (7.9-10.8); MONOCYTES # (AUTO) 0.4 10^3/uL (0.0-1.0); MONOCYTES % (AUTO) 5.5 %; NEUTROPHILS # (AUTO) 5.6 10^3/uL (1.5-6.6); NEUTROPHILS % (AUTO) 75.1 %; PLT - PLATELET COUNT 330 10^3/uL (130-450); RED BLOOD COUNT 4.39 10^6/uL (4.20-5.40); RED CELL DISTRIBUTION WIDTH 12.4 % (12.0-15.0); WHITE BLOOD COUNT 7.4 x10^3/uL (4.8-10.8)
[2019-08-27 09:20] LABS: AMPHETAMINE SCREEN,URINE NEGATIVE (NEGATIVE); BENZODIAZEPINES SCREEN, URINE NEGATIVE (NEGATIVE); COCAINE SCREEN URINE NEGATIVE (NEGATIVE); METHADONE SCREEN, URINE NEGATIVE (NEGATIVE); METHAMPHETAMINES SCREEN, URINE NEGATIVE (NEGATIVE); OPIATE SCREEN, URINE NEGATIVE (NEGATIVE); OXYCODONE SCREEN, URINE NEGATIVE (NEGATIVE); PROPOXYPHENE SCREEN, URINE NEGATIVE (NEGATIVE); TRICYCLIC ANTIDEPRESSANT,URINE NEGATIVE (NEGATIVE)
[2019-08-27 09:21] LABS: BACTERIA,URINE Few /HPF (None Seen); RBC,URINE 0-5 /HPF (0-5); SQUAMOUS EPITHELIAL CELL,UR FEW Squamous (<= Few)
[2019-08-27] MEDS ORDERED: LORazepam 0.5 MG TABLET PO STA (09:24)
[2019-08-27 09:27] LABS: ACETAMINOPHEN < 10 ug/mL (10-30); ALBUMIN 4.3 g/dL (3.2-5.5); ALBUMIN/GLOBULIN RATIO 1.8 (1.0-2.2); ALKALINE PHOSPHATASE 60 IU/L (42-121); ALT ALANINE AMINOTRANSFERASE 19 IU/L (10-60); AST ASPARTATE AMINOTRANSFERASE 18 IU/L (10-42); BILIRUBIN,TOTAL 0.5 mg/dL (0.2-1.0); BUN - BLOOD UREA NITROGEN 17 mg/dL (6-20); CALCIUM 8.9 mg/dL (8.5-10.3); CARBON DIOXIDE - CO2 27 mmol/L (21-32); CHLORIDE 105 mmol/L (101-111); CREATININE 0.6 mg/dL (0.4-1.0); GLUCOSE 119 mg/dL (70-100); LIPASE 34 U/L (22-51); SALICYLATE < 6.0 mg/dL; SODIUM 139 mmol/L (135-145); TOTAL PROTEIN 6.7 g/dL (6.7-8.2)
[2019-08-27] MEDS ORDERED: NITROFURANTOIN MACRO 100 MG CAPSULE PO STA (16:50)
[2019-08-27 19:13] VITALS: BP 122/65
== END 2019-08-27 19:33 ==
LOC: ED 08:31
DX: F41.9 Anxiety disorder, unspecified (principal); N30.00 Acute cystitis without hematuria; Z11.59 Encounter for screening for other viral diseases
CPT/HCPCS: 36415; 80320; 80329; 81001; 81025; 83690; 87086; 87635; 93005; 99285; A9270; 80053; 80306; 80307; 81003; 81599; 84443; 85025

== ENCOUNTER 2019-10-01 11:08 | Outpatient (CLI) | payer BC ==
[2019-10-02 06:45] LABS: ESTRADIOL 160 pg/mL; PROGESTERONE <0.5 ng/mL
== END 2019-10-01 11:09 | disposition home or self-care (01) ==
LOC: LAB.S 11:08
PROVIDERS: ATTEND Nurse Practitioner Family
DX: Z79.890 Hormone replacement therapy (principal)
CPT/HCPCS: 36415; 82670; 84144; 84270

== ENCOUNTER 2019-11-02 08:28 | Outpatient (CLI) | payer BC ==
[2019-11-02 15:45] LABS: LITHIUM 0.35 mmol/L
[2019-11-02 15:50] LABS: ALBUMIN 4.1 g/dL (3.2-5.5); ALBUMIN/GLOBULIN RATIO 1.7 (1.0-2.2); CALCIUM 9.1 mg/dL (8.5-10.3); CREATININE 0.9 mg/dL (0.4-1.0); TOTAL PROTEIN 6.5 g/dL (6.7-8.2)
[2019-11-02 15:58] LABS: T4 (THYROXINE) 8.03 ug/dL (6.09-12.23)
[2019-11-02 16:02] LABS: THYROID STIMULATING HORMONE 2.62 uIU/mL (0.34-5.60)
== END 2019-11-02 08:29 | disposition home or self-care (01) ==
LOC: LAB.S 08:28
PROVIDERS: ATTEND Nurse Practitioner Psychiatric/Mental Health
DX: Z79.899 Other long term (current) drug therapy (principal)
CPT/HCPCS: 36415; 80053; 80178; 84436; 84443

== ENCOUNTER 2019-12-05 08:00 | Outpatient (CLI) | payer BC | END 2019-12-05 23:59 | disposition home or self-care (01) | LOC: LAB.S 08:00 | PROVIDERS: ATTEND Physician Assistant | DX: N39.0 Urinary tract infection, site not specified (principal) | CPT/HCPCS: 87086 ==

== ENCOUNTER 2020-02-17 09:57 | Outpatient (CLI) | payer BC ==
--- NOTE | 2020-02-17 10:25 | DEXA Report ---
PROCEDURE: Dexa Spine and/or Hip INDICATIONS: BONE DISORDER, HX OSTEOPENIA TECHNIQUE: Dual energy x-ray absorptiometry (DXA) was performed on a Buysight System. Regions measur ed are the AP Spine, femoral neck, and if needed forearm. COMPARISON: None. FINDINGS: Lumbar Spine: Bone Mineral Density 0.932 g/cm/cm,T score -2.1, osteopenia Left total Hip: Bone Mineral Density 0.874 g/cm/cm,T score -1.1, osteopenia Left Femoral Neck: Bone Mineral Density 0.852 g/cm/cm, T score -1.3, osteopenia (T score greater or equal to -1.0: NORMAL) (T score from -1.1 to -2.4: OSTEOPENIA) (T score less than or equal to -2.5 to: OSTEOPOROSIS) Impression: Bone mineral density consistent with osteopenia Patients with diagnosis of osteoporosis or osteopenia should have regular bone mineral density assess ment. For those eligible for Medicare, routine testing is allowed once every 2 years. Testing frequ ency can be increased for patients who have rapidly progressing disease or for those who are receivin g medical therapy to restore bone mass. Reviewed by: Moses Belcher on 02/17/2020 10:24 AM PST Approved by: Moses Belcher on 02/17/2020 10:24 AM PST Station ID: [id number]
== END 2020-02-17 09:58 | disposition home or self-care (01) ==
LOC: DI 09:57
PROVIDERS: ATTEND Physician Assistant
DX: M85.89 Other specified disorders of bone density and structure, multiple sites (principal)

== ENCOUNTER 2020-02-25 15:24 | Outpatient (CLI) | payer BC ==
--- NOTE | 2020-02-25 16:17 | SLEEP CARE CONSULTATION ---
Information from patient questionnaire entered by Charu Barillas. I have reviewed and concur with the information entered by Charu Barillas. This document represents the service I personally performed and the decisions made by , Rosaura Bunch ARNP. History of Present Illness Service Date and Time: 02/25/2020 1524 Reason for Visit: New patient Chief Complaint: reports: Unrefreshed sleep, Snoring (sometimes if drinks alcohol or is congested), Other (waking up gasping for air). denies: Insomnia, Excessive daytime sleepiness, Observed pauses in breathing, Fatigue, Frequent awakenings at night Date of Onset: 10 years Usual bedtime: 9 PM Time it takes to fall asleep: 10-20 minutes Snores at night: Yes (occasional) Observed to quit breathing while asleep: No (just me) Sleeps alone due to snoring: No Number of times waking at night: 1 x Reasons for waking at night: reports: Choking, Gasping for air (or choking/cough). denies: Snoring Toss, Turn, or Twitch while sleeping: No Recalls having dreams: Yes Usually gets out of bed at: 5:30-6 Feels refreshed in the morning: No Morning headache: No Sleepy or fatigued during the day: Yes Ever fallen asleep while driving: No Takes day naps: No (rare) Dreams during day naps: No (unknown) Prior sleep studies: Yes (Years ago in [place] but did not sleep well) Additional HPI information: I had the pleasure of seeing DARVIN LOCKETT today regarding the possibility of her having a sleep disorder. Her current complaints are unrefreshed sleep and waking up gasping for air. She feels that she has a "restlessness" that is worse when she does not sleeping very well. She feels it is like an attention deficit type thing. She has had 2 hip surgeries this year. She states she does snore sometimes but has times that she wakes up feeling like she is choking. - Parasomnia Symptoms Ever been unable to move upon waking from sleep: No Walks in sleep: Yes (only when child) Talks in sleep: Yes (only when child) Ever acted out dreams in sleep: No Ever felt weak in the knees when startled or emotional: No Bothered by creepy, crawly, restless sensations in legs: No Problems with memory or concentration: Yes Subjective Initial [place] Sleepiness Scale score: 3 (in 2020) Past Medical History Past Medical History: reports: Anxiety, Depression (situation with hip surg anuj/injuries), Attention deficit, Other (2 hip surgires in 2020 (very painful/debilitating)). 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 Patient is and lives in [place]. Have you smoked in the past 12 months: No Alcohol use: No Caffeine use: No Family History Family history of sleep disordered breathing: No Allergies and Home Medications Drug allergies reviewed: Yes (Ultram, morphine, SSRIs (suicidal), Zofran, anti- inflammatories) Home medication list reviewed: Yes Allergy and home medication list: Calcium Vitamin D Estrogen patch Azure Welbutrin Review of Systems Weight loss over past 5 years: 5 Cardiovascular: reports: high blood pressure (situational). denies: irregular heart rate or pulse Respiratory: denies: shortness of breath Gastrointestinal: reports: nausea. denies: heartburn, difficulty swallowing Neurological: reports: headaches (migraines better with estrogen) Psychiatric: reports: Attention Deficit Hyperactivity, anxiety (recent with hip surgery and pain) Ear/Nose/Throat: reports: wisdom teeth removed. denies: nasal congestion, sinus problems, dry mouth/throat, tonsillectomy Endocrine: reports: thyroid disease Musculoskeletal: reports: other (osteopenia) Immunologic: reports: allergies to food or environment (grains) Physical Exam Blood Pressure: 130/90 Cuff size: regular Heart Rate: 65 O2 Saturation: 97 Height: 5 ft 5 in Weight: 108 lb 12.8 oz Body Mass Index: 18.1 BMI Classification: Underweight Nostrils: partially obstructed Turbinates: swollen Septum: midline Mouth and throat: narrow oropharynx Uvula visualization: 25% Mallampati Class III Tongue: normal in size Tonsils: 1+ Heart: regular rate and rhythm Lungs: clear bilaterally Impression and Plan 1. Suspected Obstructive Sleep Apnea-Hypopnea Syndrome, as suggested by a history of irregular snoring, gasping or choking in sleep, unrefreshed sleep, and cognitive impairment. I reviewed with patient that a narrow oropharynx and obesity are common predisposing factors for obstructive sleep apnea-hypopnea syndrome. I recommend proceeding to polysomnography to confirm the diagnosis and to assess severity. If the patient has significant sleep disordered breathing, a manual CPAP titration study will also be performed to find the optimal treatment pressure. I informed the patient of what the sleep studies involve and after some discussion, obtained agreement to proceed. The pathophysiology of obstructive sleep apnea-hypopnea syndrome was discussed with the patient and health risks of cardiovascular and cerebrovascular disease if not treated. Risks of drowsy driving discussed in detail and patient advised to avoid long distance driving and to mold puller at the first sign of drowsiness. Patient agreed to plan. * Schedule polysomnography +- manual CPAP titration study. * Avoid long distance driving or driving when feeling sleepy. * Avoid sedative and muscle relaxant around bedtime. * Review instructions provided by trained office staff on how to prepare for the sleep study. * Return for follow-up after sleep study completed. Visit Type: In Office Time Spent with Patient (minutes): 30 Provider Statement: I spent 100% of the Face to Face Visit with the patient with greater than 50% spent counseling the patient and coordination of care.
[2020-02-25 16:18] VITALS: BP 130/90
== END 2020-02-25 15:25 | disposition home or self-care (01) ==
LOC: SC 15:24
PROVIDERS: ATTEND Nurse Practitioner Family
DX: G47.8 Other sleep disorders (principal); R06.83 Snoring; R41.89 Other symptoms and signs involving cognitive functions and awareness; R63.6 Underweight; Z68.1 Body mass index [BMI] 19.9 or less, adult
CPT/HCPCS: 99203; 99212

== ENCOUNTER 2020-03-03 12:30 | Outpatient (CLI) | payer BC | END 2020-03-03 12:31 | disposition home or self-care (01) | LOC: SC 12:30 | PROVIDERS: ATTEND Nurse Practitioner Family | DX: R06.83 Snoring (principal); G47.8 Other sleep disorders | CPT/HCPCS: 95806 ==

== ENCOUNTER 2020-03-09 16:48 | Outpatient (CLI) | payer BC ==
--- NOTE | 2020-03-09 16:05 | SLEEP CARE CONSULTATION ---
Information from patient questionnaire entered by Jessi Acosta. I have reviewed and concur with the information entered by Jessi Acosta. This document represents the service I personally performed and the decisions made by me, Diane Rolle, RN, MSN, WINDOWS SECURITY ENGINEER. History of Present Illness Service Date and Time: 03/09/2020 1500 Initial Aston Sleepiness Scale score: 3 (in 2019) Current Aston Sleepiness Scale score: 2 Additional HPI information: DARVIN LOCKETT returns for follow up and results of the recently performed home sleep study. I reviewed past initial consultation. Patient reports daytime fatigue and waking to gasping and choking for air when sleeping. She could not state how frequent. The patient was informed of the HST findings: a copy can be obtained from our medical records department at [facility]. I explained the pathophysiology behind obstructive sleep apnea. Patient had many questions that were answered. Patient does not have sleep apnea and was advised how weight gain could increase the risk of developing sleep apnea in the future. Patient does not have significant sleep disordered breathing, what apnea she has is in supine position. She continues to report waking to gasping if supine so has conditioned herself to sleep prone. However, she has neck pain from sleeping prone and on her side though worse pain if prone sleep. 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 I advised a repeat sleep study {HST or Polysomnograpy) in supine position but she feels she could not achieve even with pillow positioning. She feels she has conditioned herself to sleep non supine and would move pillows. An oral appliance could be used for snoring. She is advised not to use the over the counter oral appliance she bought as it can cause jaw issues. After much discussion, the patient would like to follow up her dentist to discuss the oral appliance. She has seen an ENT before and no treatment indication. Patient counseled not drink alcohol less than 4 hours before bedtime as it can increase snoring and apnea. Patient was cautioned about risks of drowsy driving until sleepiness symptoms resolve. Patient denies drowsy driving but gets tired on long distances so does not drive far. Patient advised to avoid long distances unless has a microcomputer technician driver wheelchair and stops as soon as tired. Sleep Study - Results Type of Sleep Study: Home sleep study Prior sleep studies: Yes (Years ago in [place] but did not sleep well) Polysomnography/Home Sleep Study results: Physician Impression: The quality of the study is good. The length of the study is adequate (> 240 minutes). Please also see the tabulated and graphic data. 1. No significant sleep disordered breathing, with an AHI of 0.2/hr and agus SaO2 of 89%. During the study, the patient had 0 apneas (0 obstructive, 0 central, 0 mixed) and 1 hypopnea. The longest episode lasted 60.5 seconds. The patient had very limited supine sleep (supine AHI was 3.2 and non-supine, 0.00). Recommendation: h No treatment is necessary. However, because the patient did not sleep supine during this study, significant sleep disordered breathing during supine sleep cannot be ruled out. Consider an inlaboratory polysomnography if the sleep-disordered breathing is suspected. Electronically signed by: Candido Carrington M.D. Diplomate, [place] [employer] Signed date and time: 03/07/2020 12:35 PM Allergies and Home Medications Known drug allergies: No Home medication list reviewed: Yes (stopped lithium - on wellbutrin only) Review of Systems Review of systems same as previous: Yes Physical Exam Height: 5 ft 5 in Weight: 108 lb Body Mass Index: 17.9 BMI Classification: Underweight Impression and Plan Snoring but no significant sleep disordered breathing. Patient is symptomatic with reports of daytime fatigue and waking to gasping when supine. She declined a repeat HST or polysomnography in supine position at this time as she feels she would not be able to achieve supine sleep even with pillow positioning or a mild sleep aid. She is normal weight so she does not need to lose weight to reduce apnea risk. An oral appliance can also be used for snoring and patient would like to try this treatment. This would require a dental consultation. Patient cautioned not to use other online appliances as can cause bite issues. A list of accredited dentists in [facility] and one local dentist who makes oral appliances were offered but declined. She will follow up with her own dentist. Patient is advised to check if insurance will cover. I also discussed sleeping with head of bed elevated 30-40 degrees with a wedge pillow or in a recliner but patient states she has tried and is uncomfortable sleeping. An ENT consult can also be helpful to determine if any other treatment is an option. She has seen an ENT in the past/ no treatment indicated then and will consider. Patient advised to contact this office if she feels she could repeat sleep test for further evaluation. * Follow up with dentist for evaluation of oral appliance. * Avoid alcohol consumption near bedtime. * Consider re-evaluation with ENT * The patient is again cautioned about driving until sleepiness completely resolves. * Return as needed for further evaluation of symptoms. Visit Type: Telehealth Video Video Type: [facility] Location of Provider: Home Patient agrees and consents to this telehealth visit type: Yes Patient agrees to have their insurance billed: Yes Time Spent with Patient (minutes): 35 Provider Statement: I spent 100% of the Telehealth Video Call with the patient with greater than 50% spent counseling the patient and coordination of care.
== END 2020-03-09 16:49 | disposition home or self-care (01) ==
LOC: SC 16:48
PROVIDERS: ATTEND Nurse Practitioner Family
DX: R06.83 Snoring (principal); G47.8 Other sleep disorders; R53.83 Other fatigue

== ENCOUNTER 2020-06-10 07:08 | Outpatient (CLI) | payer BC ==
[2020-06-10 15:01] LABS: BASOPHILS # (AUTO) 0.1 10^3/uL (0.0-0.1); BASOPHILS % (AUTO) 1.2 %; EOSINOPHILS # (AUTO) 0.2 10^3/uL (0.0-0.7); EOSINOPHILS % (AUTO) 2.7 %; HCT - HEMATOCRIT 41.2 % (37.0-47.0); HGB - HEMOGLOBIN 13.3 g/dL (12.0-16.0); LYMPHOCYTES % (AUTO) 34.2 %; MEAN CORPUSCULAR HEMOGLOBIN 30.5 pg (27.0-31.0); MEAN CORPUSCULAR HGB CONC 32.3 g/dL (32.0-36.0); MEAN CORPUSCULAR VOLUME 94.5 fL (81.0-99.0); MEAN PLATELET VOLUME 11.4 fL (7.9-10.8); MONOCYTES # (AUTO) 0.5 10^3/uL (0.0-1.0); MONOCYTES % (AUTO) 7.7 %; NEUTROPHILS # (AUTO) 3.1 10^3/uL (1.5-6.6); PLT - PLATELET COUNT 267 10^3/uL (130-450); RED BLOOD COUNT 4.36 10^6/uL (4.20-5.40); RED CELL DISTRIBUTION WIDTH 13.8 % (12.0-15.0); WHITE BLOOD COUNT 5.8 x10^3/uL (4.8-10.8)
[2020-06-10 15:53] LABS: ALBUMIN/GLOBULIN RATIO 1.5 (1.0-2.2); ALKALINE PHOSPHATASE 69 IU/L (42-121); ALT ALANINE AMINOTRANSFERASE 42 IU/L (10-60); AST ASPARTATE AMINOTRANSFERASE 36 IU/L (10-42); BILIRUBIN,TOTAL 0.6 mg/dL (0.2-1.0); BUN - BLOOD UREA NITROGEN 24 mg/dL (6-20); CALCIUM 8.9 mg/dL (8.5-10.3); CARBON DIOXIDE - CO2 25 mmol/L (21-32); CHLORIDE 103 mmol/L (101-111); CHOL/HDL RATIO 2.6 (<4.4); CHOLESTEROL 182 mg/dL; CREATININE 0.6 mg/dL (0.4-1.0); GFR - MDRD 104 (>89); GLUCOSE 90 mg/dL (70-100); HDL CHOLESTEROL 71 mg/dL; LDL CHOLESTEROL,CALCULATED 102 mg/dL; LDL/HDL RATIO 1.4 (<4.4); POTASSIUM 3.6 mmol/L (3.5-5.0); SODIUM 134 mmol/L (135-145); TOTAL PROTEIN 6.6 g/dL (6.7-8.2); TRIGLYCERIDES 44 mg/dL; VLDL CHOLESTEROL 9 mg/dL
== END 2020-06-10 07:09 | disposition home or self-care (01) ==
LOC: LAB.S 07:08
PROVIDERS: ATTEND Nurse Practitioner Family
DX: Z00.00 Encounter for general adult medical examination without abnormal findings (principal); E55.9 Vitamin D deficiency, unspecified; E78.5 Hyperlipidemia, unspecified
CPT/HCPCS: 36415; 80053; 80061; 82306; 82728; 83721; 85025

== ENCOUNTER 2020-11-22 10:22 | Outpatient (CLI) | payer BC ==
[2020-11-22 14:45] LABS: BASOPHILS # (AUTO) 0.1 10^3/uL (0.0-0.1); BASOPHILS % (AUTO) 1.1 %; EOSINOPHILS # (AUTO) 0.1 10^3/uL (0.0-0.7); EOSINOPHILS % (AUTO) 1.6 %; HCT - HEMATOCRIT 40.7 % (37.0-47.0); HGB - HEMOGLOBIN 13.4 g/dL (12.0-16.0); LYMPHOCYTES # (AUTO) 1.8 10^3/uL (1.5-3.5); LYMPHOCYTES % (AUTO) 33.3 %; MEAN CORPUSCULAR HEMOGLOBIN 30.8 pg (27.0-31.0); MEAN CORPUSCULAR HGB CONC 32.9 g/dL (32.0-36.0); MEAN CORPUSCULAR VOLUME 93.6 fL (81.0-99.0); MEAN PLATELET VOLUME 10.2 fL (7.9-10.8); MONOCYTES # (AUTO) 0.5 10^3/uL (0.0-1.0); MONOCYTES % (AUTO) 8.3 %; NEUTROPHILS # (AUTO) 3.1 10^3/uL (1.5-6.6); NEUTROPHILS % (AUTO) 55.5 %; PLT - PLATELET COUNT 243 10^3/uL (130-450); RED BLOOD COUNT 4.35 10^6/uL (4.20-5.40); RED CELL DISTRIBUTION WIDTH 13.3 % (12.0-15.0); WHITE BLOOD COUNT 5.5 x10^3/uL (4.8-10.8)
[2020-11-22 14:56] LABS: ALBUMIN 3.9 g/dL (3.2-5.5); ALBUMIN/GLOBULIN RATIO 1.7 (1.0-2.2); BILIRUBIN,TOTAL 0.8 mg/dL (0.2-1.0); CALCIUM 9.3 mg/dL (8.5-10.3); CREATININE 0.7 mg/dL (0.4-1.0); POTASSIUM 4.2 mmol/L (3.5-5.0); TOTAL PROTEIN 6.2 g/dL (6.7-8.2)
[2020-11-22 15:12] LABS: THYROID STIMULATING HORMONE 1.21 uIU/mL (0.34-5.60)
== END 2020-11-22 23:59 | disposition home or self-care (01) ==
LOC: LAB.S 10:22
PROVIDERS: ATTEND Emergency Medicine
DX: R63.4 Abnormal weight loss (principal); R53.83 Other fatigue
CPT/HCPCS: 36415; 80053; 84443; 85025

== ENCOUNTER 2021-05-23 07:12 | Outpatient (CLI) | payer BC ==
[2021-05-23 14:32] LABS: BASOPHILS % (AUTO) 0.7 %; EOSINOPHILS # (AUTO) 0.1 10^3/uL (0.0-0.7); EOSINOPHILS % (AUTO) 1.3 %; HCT - HEMATOCRIT 40.3 % (37.0-47.0); HGB - HEMOGLOBIN 13.4 g/dL (12.0-16.0); LYMPHOCYTES # (AUTO) 1.8 10^3/uL (1.5-3.5); LYMPHOCYTES % (AUTO) 33.8 %; MEAN CORPUSCULAR HGB CONC 33.3 g/dL (32.0-36.0); MEAN CORPUSCULAR VOLUME 93.3 fL (81.0-99.0); MEAN PLATELET VOLUME 10.4 fL (7.9-10.8); MONOCYTES # (AUTO) 0.4 10^3/uL (0.0-1.0); MONOCYTES % (AUTO) 7.2 %; NEUTROPHILS # (AUTO) 3.1 10^3/uL (1.5-6.6); NEUTROPHILS % (AUTO) 56.8 %; PLT - PLATELET COUNT 248 10^3/uL (130-450); RED BLOOD COUNT 4.32 10^6/uL (4.20-5.40); RED CELL DISTRIBUTION WIDTH 13.6 % (12.0-15.0); WHITE BLOOD COUNT 5.4 x10^3/uL (4.8-10.8)
[2021-05-23 14:46] LABS: THYROID STIMULATING HORMONE 2.33 uIU/mL (0.34-5.60)
[2021-05-23 14:47] LABS: ALBUMIN/GLOBULIN RATIO 1.9 (1.0-2.2); ALKALINE PHOSPHATASE 51 IU/L (42-121); ALT ALANINE AMINOTRANSFERASE 34 IU/L (10-60); AST ASPARTATE AMINOTRANSFERASE 28 IU/L (10-42); BILIRUBIN,TOTAL 0.7 mg/dL (0.2-1.0); BUN - BLOOD UREA NITROGEN 19 mg/dL (6-20); CARBON DIOXIDE - CO2 26 mmol/L (21-32); CHLORIDE 102 mmol/L (101-111); CHOL/HDL RATIO 2.1 (<4.4); CHOLESTEROL 177 mg/dL; CREATININE 0.7 mg/dL (0.4-1.0); GFR - MDRD 87 (>89); GLUCOSE 82 mg/dL (70-100); HDL CHOLESTEROL 85 mg/dL; POTASSIUM 3.6 mmol/L (3.5-5.0); SODIUM 139 mmol/L (135-145); TOTAL PROTEIN 6.1 g/dL (6.7-8.2); TRIGLYCERIDES 27 mg/dL
[2021-05-24 09:16] LABS: HEPATITIS C ANTIBODY NON-REACTIVE (NON-REACTIVE)
== END 2021-05-23 07:13 | disposition home or self-care (01) ==
LOC: LAB.S 07:12
PROVIDERS: ATTEND Internal Medicine
DX: F90.0 Attention-deficit hyperactivity disorder, predominantly inattentive type (principal); Z11.59 Encounter for screening for other viral diseases; Z13.6 Encounter for screening for cardiovascular disorders; Z79.899 Other long term (current) drug therapy; R53.83 Other fatigue; F43.10 Post-traumatic stress disorder, unspecified; F41.9 Anxiety disorder, unspecified; M85.80 Other specified disorders of bone density and structure, unspecified site; M35.7 Hypermobility syndrome
CPT/HCPCS: 36415; 80053; 80061; 82306; 82607; 83721; 84443; 85025; 86803

== ENCOUNTER 2021-12-03 16:25 | Outpatient (CLI) | payer BC | END 2021-12-03 16:26 | disposition critical access hospital (66) | LOC: EMS 16:25 | DX: S09.90XA Unspecified injury of head, initial encounter (principal); W18.09XA Striking against other object with subsequent fall, initial encounter; Y92.512 Supermarket, store or market as the place of occurrence of the external cause | CPT/HCPCS: A0425; A0429 ==

== ENCOUNTER 2021-12-03 16:49 | Emergency (ER) | payer BC ==
--- NOTE | 2021-12-03 17:40 | ED Physician Documentation ---
PD HPI HEAD INJURY - Stated complaint Stated Complaint: HEAD INJURY - Chief complaint Chief Complaint: Trauma Hd/Nk - History obtained from History obtained from: Patient - Additional information Additional information: The patient comes to the emergency department with chief complaint of head injury. She states she was bent over looking at some pain and then began to walk out of the store room when she banged her head on a door that was partially pulled down. Patient did not lose consciousness. She states she feels as though she just ran into the door with the top of her head and that she has pain right there. She states she has "pichardo splotches" in her vision but that her vision is also clear. No nausea or vomiting. No neurologic deficits. She states that she has had a similar head injury previously. The injury happened roughly 2 hours ago. She has not had any difficulty speaking or walking. No other complaints at this time. Review of Systems Ten Systems: 10 systems reviewed and negative Constitutional: reports: Reviewed and negative Eyes: reports: Reviewed and negative Ears: reports: Reviewed and negative Nose: reports: Reviewed and negative Throat: reports: Reviewed and negative Cardiac: reports: Reviewed and negative Respiratory: reports: Reviewed and negative GI: reports: Reviewed and negative : reports: Reviewed and negative Skin: reports: Reviewed and negative Musculoskeletal: reports: Reviewed and negative Neurologic: reports: Headache, Head injury Psychiatric: reports: Reviewed and negative Endocrine: reports: Reviewed and negative Immunocompromised: reports: Reviewed and negative PD PAST MEDICAL HISTORY - Past Medical History Cardiovascular: None Respiratory: None Neuro: Migraines Endocrine/Autoimmune: None GI: GERD : None HEENT: None Psych: Depression, Anxiety Musculoskeletal: Other Derm: None - Past Surgical History Past Surgical History: Yes 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 - Present Medications Home Medications: Ambulatory Orders Medication Instructions Recorded Confirmed Estrogen Patch 01/31/19 - Allergies Allergies/Adverse Reactions: Allergies Allergy/AdvReac Type Severity Reaction Status Date / Time No Known Drug Allergies Allergy Verified 12/03/21 17:06 - Social History Does the pt smoke?: No Smoking Status: Never smoker Does the pt drink ETOH?: No Does the pt have substance abuse?: No - Immunizations Immunizations are current?: Yes PD ED PE NORMAL - Vitals Vital signs reviewed: Yes - General General: Alert and oriented X 3, No acute distress, Well developed/nourished - HEENT HEENT: PERRL, EOMI, Moist mucous membranes, Other (No visual external trauma. Tenderness palpation over the apex of the patient's scalp. No edema. No skin loss.) - Neck Neck: Supple, no meningeal sign - Respiratory Respiratory: No respiratory distress - Derm Derm: Normal color, Warm and dry, No rash - Extremities Extremities: No deformity, No edema - Neuro Neuro: Alert and oriented X 3, central office inspector 2-12 intact, Normal speech - Psych Psych: Normal mood, Normal affect Results - Vitals Vitals: Vital Signs - 24 hr 12/03/21 16:59 Temperature 37.3 C Heart Rate 71 Respiratory 18 Rate Blood Pressure 155/73 H O2 Saturation 100 Oxygen O2 Source Room air - Rads (name of study) CT head Radiology: Final report received, EMP read indepedently, See rad report (Negative) PD MEDICAL DECISION MAKING - ED course Complexity details: reviewed results, re-evaluated patient, considered differential, d/w patient, d/w family ED course: I discussed with the patient that her head CT looks good and that the injury she is describing would be unlikely to have caused significant intracranial injury anyway. We have discussed symptomatic management at home, as well as the timeline for expected resolution of symptoms. We discussed the usual indications for return. Departure - Departure Disposition: 01 Home, Self Care Clinical Impression: Closed head injury Qualifiers: Encounter type: initial encounter Qualified Code(s): S09.90XA - Unspecified injury of head, initial encounter Condition: Stable Instructions: ED Head Injury Closed Comments: Your head CT looks good. The nature of your injury is not suggestive of significant intracranial injury. However, you may be on the very mild end of the concussion spectrum. You may take ibuprofen and/or Tylenol if needed for discomfort. You may use ice to help with the discomfort as well. Symptoms after head injury and generally last for anywhere from several days to a couple of weeks. Please get plenty of rest tonight and plenty of fluids to drink. And this will help you feeling better.
--- NOTE | 2021-12-03 17:43 | CT Report ---
PROCEDURE: CT brain without INDICATIONS: head injury TECHNIQUE: Noncontrast 4.5 mm thick angled axial sections acquired from the foramen magnum to the vertex. For r adiation dose reduction, the following was used: automated exposure control, adjustment of mA and/or kV according to patient size. COMPARISON: None. FINDINGS: Image quality: Excellent. CSF spaces: Basal cisterns are patent. No extra-axial fluid collections. Ventricles are normal in size and shape. Brain: No midline shift. No intracranial masses or hemorrhage. Reza-white matter interface is norm al. Skull and face: Calvarium and visualized facial bones are intact, without suspicious lesions. Sinuses: Visualized sinuses and mastoids are clear. IMPRESSION: Normal CT brain Reviewed by: Erik Colorado MD on 12/03/2021 4:42 PM INDER Approved by: Erik Colorado MD on 12/03/2021 4:42 PM INDER Station ID: [id number]
[2021-12-03 17:53] VITALS: BP 135/80
== END 2021-12-03 17:53 | disposition home or self-care (01) ==
LOC: EDUNIT# → EDSEX → ED 16:49
DX: S09.90XA Unspecified injury of head, initial encounter (principal); W22.8XXA Striking against or struck by other objects, initial encounter; Y93.89 Activity, other specified; Y92.89 Other specified places as the place of occurrence of the external cause
CPT/HCPCS: 99282; 99284

== ENCOUNTER 2022-03-03 09:00 | Outpatient (CLI) | payer BC ==
[2022-03-03 22:17] LABS: BACTERIAL VAGINOSIS DNA NEGATIVE (NEGATIVE); CANDIDA GLABRATA DNA NEGATIVE (NEGATIVE); CANDIDA GROUP DNA NEGATIVE (NEGATIVE); CANDIDA KRUSEI DNA NEGATIVE (NEGATIVE); TRICHOMONAS VAGINALIS DNA NEGATIVE (NEGATIVE)
== END 2022-03-03 23:59 | disposition home or self-care (01) ==
LOC: LAB.S 09:00
PROVIDERS: ATTEND Physician Assistant Medical
DX: R30.0 Dysuria (principal); N76.0 Acute vaginitis
CPT/HCPCS: 81514; 87077; 87086; 87181

== ENCOUNTER 2022-04-05 08:00 | Outpatient (CLI) | payer BC ==
[2022-04-05 17:18] LABS: BILIRUBIN,URINE NEGATIVE (NEGATIVE); GLUCOSE, URINE (UA) NEGATIVE (NEGATIVE); KETONES,URINE (UA) NEGATIVE (NEGATIVE); LEUKOCYTE ESTERASE, URINE SMALL (NEGATIVE); NITRITE,URINE NEGATIVE (NEGATIVE); OCCULT BLOOD,URINE NEGATIVE (NEGATIVE); PROTEIN,URINE NEGATIVE (NEGATIVE); UROBILINOGEN,URINE 0.2 (NORMAL) E.U./dL (NORMAL)
[2022-04-05 17:38] LABS: BACTERIA,URINE Few /HPF (None Seen); CLARITY,URINE HAZY (CLEAR); RBC,URINE 0-5 /HPF (0-5); SQUAMOUS EPITHELIAL CELL,UR FEW Squamous (<= Few)
== END 2022-04-05 23:59 | disposition home or self-care (01) ==
LOC: LAB.R 08:00
PROVIDERS: ATTEND Internal Medicine
DX: R39.9 Unspecified symptoms and signs involving the genitourinary system (principal)
CPT/HCPCS: 81001; 87086

== ENCOUNTER 2022-05-07 07:46 | Outpatient (CLI) | payer BC ==
[2022-05-07 15:31] LABS: THYROID STIMULATING HORMONE 2.76 uIU/mL (0.34-5.60)
[2022-05-07 15:33] LABS: FREE T4 (FREE THYROXINE) 0.7 ng/dL (0.58-1.64)
[2022-05-07 15:39] LABS: ALBUMIN 4.1 g/dL (3.2-5.5); ALBUMIN/GLOBULIN RATIO 1.7 (1.0-2.2); ALKALINE PHOSPHATASE 73 IU/L (42-121); ALT ALANINE AMINOTRANSFERASE 29 IU/L (10-60); AST ASPARTATE AMINOTRANSFERASE 31 IU/L (10-42); BILIRUBIN,TOTAL 0.8 mg/dL (0.2-1.0); BUN - BLOOD UREA NITROGEN 23 mg/dL (6-20); CALCIUM 9.9 mg/dL (8.5-10.3); CARBON DIOXIDE - CO2 28 mmol/L (21-32); CHLORIDE 105 mmol/L (101-111); CHOL/HDL RATIO 2.3 (<4.4); CHOLESTEROL 199 mg/dL; CREATININE 0.5 mg/dL (0.4-1.0); GFR - MDRD 127 (>89); GLUCOSE 94 mg/dL (70-100); HDL CHOLESTEROL 86 mg/dL; POTASSIUM 3.8 mmol/L (3.5-5.0); SODIUM 141 mmol/L (135-145); TOTAL PROTEIN 6.5 g/dL (6.7-8.2); TRIGLYCERIDES 27 mg/dL
== END 2022-05-07 07:47 | disposition home or self-care (01) ==
LOC: LAB.S 07:46
PROVIDERS: ATTEND Nurse Practitioner Obstetrics & Gynecology
DX: Z13.89 Encounter for screening for other disorder (principal)
CPT/HCPCS: 36415; 80053; 80061; 83721; 84439; 84443

== ENCOUNTER 2022-12-20 10:01 | Outpatient (CLI) | payer BC ==
[2022-12-20 14:25] LABS: BASOPHILS # (AUTO) 0.1 10^3/uL (0.0-0.1); BASOPHILS % (AUTO) 0.7 %; EOSINOPHILS # (AUTO) 0.2 10^3/uL (0.0-0.7); EOSINOPHILS % (AUTO) 2.4 %; HCT - HEMATOCRIT 42.2 % (37.0-47.0); HGB - HEMOGLOBIN 13.9 g/dL (12.0-16.0); LYMPHOCYTES # (AUTO) 1.8 10^3/uL (1.5-3.5); LYMPHOCYTES % (AUTO) 26.2 %; MEAN CORPUSCULAR HGB CONC 32.9 g/dL (32.0-36.0); MEAN PLATELET VOLUME 10.4 fL (7.9-10.8); MONOCYTES # (AUTO) 0.6 10^3/uL (0.0-1.0); MONOCYTES % (AUTO) 8.1 %; NEUTROPHILS # (AUTO) 4.2 10^3/uL (1.5-6.6); NEUTROPHILS % (AUTO) 62.2 %; PLT - PLATELET COUNT 258 10^3/uL (130-450); RED BLOOD COUNT 4.49 10^6/uL (4.20-5.40); RED CELL DISTRIBUTION WIDTH 13.9 % (12.0-15.0); WHITE BLOOD COUNT 6.8 x10^3/uL (4.8-10.8)
== END 2022-12-20 10:02 | disposition home or self-care (01) ==
LOC: LAB.S 10:01
PROVIDERS: ATTEND Nurse Practitioner Obstetrics & Gynecology
DX: R53.83 Other fatigue (principal)
CPT/HCPCS: 36415; 85025

== ENCOUNTER 2022-12-28 18:26 | Outpatient (CLI) | payer BC ==
[2022-12-28 19:37] LABS: FERRITIN 29.6 ng/mL (11.0-306.8)
== END 2022-12-28 18:27 | disposition home or self-care (01) ==
LOC: LAB 18:26
PROVIDERS: ATTEND Nurse Practitioner Obstetrics & Gynecology
DX: R53.83 Other fatigue (principal)
CPT/HCPCS: 36415; 81599; 82670; 82672; 82679; 82728; 83001; 84403

== ENCOUNTER 2023-05-29 14:24 | Outpatient (CLI) | payer BC ==
[2023-05-29 14:57] LABS: ALBUMIN 4.3 g/dL (3.2-5.5); ALBUMIN/GLOBULIN RATIO 1.7 (1.0-2.2); BILIRUBIN,TOTAL 0.4 mg/dL (0.2-1.0); CALCIUM 9.7 mg/dL (8.5-10.3); CREATININE 0.6 mg/dL (0.6-1.3); POTASSIUM 4.1 mmol/L (3.5-4.5); TOTAL PROTEIN 6.8 g/dL (6.4-8.9)
[2023-05-29 15:08] LABS: THYROID STIMULATING HORMONE 1.84 uIU/mL (0.34-5.60)
[2023-05-29 15:15] LABS: FERRITIN 40.2 ng/mL (11.0-306.8)
== END 2023-05-29 14:25 | disposition home or self-care (01) ==
LOC: LAB 14:24
PROVIDERS: ATTEND Nurse Practitioner Obstetrics & Gynecology
DX: R53.83 Other fatigue (principal)
CPT/HCPCS: 36415; 80053; 82306; 82728; 84439; 84443

== ENCOUNTER 2023-06-03 07:05 | Emergency (ER) | payer BC ==
[2023-06-03 07:50] LABS: BASOPHILS # (AUTO) 0.1 10^3/uL (0.0-0.1); BASOPHILS % (AUTO) 1.2 %; EOSINOPHILS # (AUTO) 0.1 10^3/uL (0.0-0.7); EOSINOPHILS % (AUTO) 1.5 %; HCT - HEMATOCRIT 43.6 % (37.0-47.0); HGB - HEMOGLOBIN 14.3 g/dL (12.0-16.0); LYMPHOCYTES # (AUTO) 1.7 10^3/uL (1.5-3.5); LYMPHOCYTES % (AUTO) 31.8 %; MEAN CORPUSCULAR HEMOGLOBIN 30.2 pg (27.0-31.0); MEAN CORPUSCULAR HGB CONC 32.8 g/dL (32.0-36.0); MEAN PLATELET VOLUME 9.5 fL (7.9-10.8); MONOCYTES # (AUTO) 0.4 10^3/uL (0.0-1.0); MONOCYTES % (AUTO) 8.5 %; NEUTROPHILS % (AUTO) 56.8 %; PLT - PLATELET COUNT 225 10^3/uL (130-450); RED BLOOD COUNT 4.74 10^6/uL (4.20-5.40); RED CELL DISTRIBUTION WIDTH 13.4 % (12.0-15.0); WHITE BLOOD COUNT 5.2 x10^3/uL (4.8-10.8)
[2023-06-03] MEDS ORDERED: iohexoL-300 100 ML VIAL ONE (07:52)
[2023-06-03] MEDS: SODIUM CHLORIDE 0.9% 1,000 ML IV STA (08:02)
[2023-06-03 08:05] LABS: ALBUMIN 4.4 g/dL (3.2-5.5); ALBUMIN/GLOBULIN RATIO 1.9 (1.0-2.2); BILIRUBIN,TOTAL 0.6 mg/dL (0.2-1.0); CALCIUM 9.5 mg/dL (8.5-10.3); CREATININE 0.7 mg/dL (0.6-1.3); POTASSIUM 3.6 mmol/L (3.5-4.5); TOTAL PROTEIN 6.7 g/dL (6.4-8.9)
--- NOTE | 2023-06-03 08:16 | ED Physician Documentation ---
PD HPI ABD PAIN - Stated complaint Stated Complaint: INSIDES HURT - Chief complaint Chief Complaint: Abd Pain - History obtained from History obtained from: Patient - Treatment prior to arrival Treatment prior to arrival: Patient is a 57-year-old female presenting for evaluation of generalized abdominal pain on and off for the past several months. Patient also reports having pale-colored stools over the last 4 months. This morning she had nausea which concerned her prompting her to come to the emergency department. She also recently has had Outpatient labs done last week by her PCP and noted that her liver markers were slightly elevated. She has not heard from her PCP yet as these labs were just done on Saturday. She denies alcohol use. She reports that in the past she has had issues with gaining weight so was eating a higher fat diet but did recently cut down on that a few months ago. She did have some loose stools this morning. Denies blood in stools. Denies any prior abdominal surgeries. Review of Systems Constitutional: denies: Fever Cardiac: denies: Chest pain / pressure Respiratory: denies: Dyspnea GI: reports: Abdominal Pain, Nausea. 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 - Present Medications Home Medications: Ambulatory Orders Medication Instructions Recorded Confirmed Estradiol 0.05 mg Patch [Climara 1 each TOP Q3D 06/03/23 06/03/23 0.05 mg] Ferrous Sulfate [Feosol] 325 mg PO DAILY 06/03/23 06/03/23 buPROPion [Wellbutrin Sr] 150 mg PO DAILY 06/03/23 06/03/23 - Allergies Allergies/Adverse Reactions: Allergies Allergy/AdvReac Type Severity Reaction Status Date / Time ondansetron [From Zofran] Allergy Anxiety Verified 06/03/23 07:21 codeine AdvReac Nausea Verified 06/03/23 07:21 prochlorperazine AdvReac Unknown Verified 06/03/23 07:21 [From Compazine] tramadol [From Ultram] AdvReac Unknown Verified 06/03/23 07:21 - Social History Does the pt smoke?: No Smoking Status: Never smoker Does the pt drink ETOH?: No Does the pt have substance abuse?: No - Immunizations Immunizations are current?: No Immunizations: TDAP >10years/unknown, Other immun not current PD ED PE NORMAL - General General: Alert and oriented X 3, No acute distress, Well developed/nourished - HEENT HEENT: Atraumatic, Moist mucous membranes, Pharynx benign - Neck Neck: Supple, no meningeal sign - Cardiac Cardiac: RRR, Strong equal pulses - Respiratory Respiratory: No respiratory distress, Clear bilaterally - Abdomen Abdomen: Normal bowel sounds, Soft, Non distended, Other (Generalized abdominal tenderness; No rebound, no guarding, no mass) - Rectal Rectal: Other (Chaperoned by Julia LENZ, no perineal tenderness, erythema or swelling or any visible abnormalities. Normal rectal tone, no rectal tenderness,) - Derm Derm: Warm and dry - Extremities Extremities: No edema - Neuro Neuro: Normal speech Results - Vitals Vitals: Vital Signs - 24 hr 06/03/23 06/03/23 06/03/23 07:22 08:05 09:19 Temperature 36.8 C Heart Rate 72 63 76 Respiratory 16 12 14 Rate Blood Pressure 158/85 H 129/86 H O2 Saturation 100 100 100 06/03/23 10:10 Temperature Heart Rate 67 Respiratory 18 Rate Blood Pressure 128/83 H O2 Saturation 96 Oxygen O2 Source Room air - Labs Labs: Laboratory Tests 06/03/23 06/03/23 07:45 07:45 WBC 5.2 RBC 4.74 Hgb 14.3 Hct 43.6 MCV 92.0 MCH 30.2 MCHC 32.8 RDW 13.4 Plt Count 225 MPV 9.5 Neut # (Auto) 3.0 Lymph # (Auto) 1.7 Sargent # (Auto) 0.4 Eos # (Auto) 0.1 Baso # (Auto) 0.1 Absolute Nucleated RBC 0.00 Nucleated RBC % 0.0 Sodium 137 Potassium 3.6 Chloride 103 Carbon Dioxide 29 Anion Gap 5.0 L BUN 20 Creatinine 0.7 Estimated GFR (MDRD) 86 L Glucose 100 Calcium 9.5 Total Bilirubin 0.6 AST 51 H ALT 113 H Alkaline Phosphatase 62 Total Protein 6.7 Albumin 4.4 Globulin 2.3 Albumin/Globulin Ratio 1.9 Lipase 21 PD Medical Decision Making - ED course Complexity details: reviewed results, re-evaluated patient, d/w patient ED course: Patient is a 57-year-old female presenting for evaluation of generalized abdominal pain with nausea. Abdominal exam is benign with no rebound or guarding. Labs including CBC, chemistry were obtained and reviewed and without significant findings. AST and ALT were mildly elevated as they were last week. No right upper quadrant tenderness. No symptoms to suggest UTI. CT of the abdomen and pelvis was obtained which I reviewed which demonstrates a large fecal load. There is also some concerns for inflammation around the perineum a nd rectum. I did perform an exam with jewelry maker present and patient has no discomfort or abnormal findings in the perineum and has no discomfort in the rectum on digital exam. Patient was counseled regarding her Laboratory testing as well as CT findings. She is agreeable to trial of MiraLAX. She understands need for follow-up with primary care provider regarding her CT as well as follow-up for consideration of colonoscopy and possible upper endoscopy given her ongoing abdominal pains for months. Patient counseled on concerning symptoms to return for. Departure - Departure Disposition: 01 Home, Self Care Clinical Impression: Generalized abdominal pain, Constipation, Abnormal LFTs, Liver cyst, Abnormal computed tomography of abdomen and pelvis Condition: Stable Instructions: ED Constipation Follow-Up: Beryl Moon CNM, AB [Primary Care Provider] - Within 1 week (To discuss your recent symptoms as well as your testing in the emergency department Including follow-up for your CT scan as well as abnormal liver labs.) [facility] [Provider Group] - Within 1 week (to discuss having a colonoscopy and/or an upper endoscopy for your recent symptoms and the inflammation seen on your CT scan) Comments: Your testing today shows again slight elevation in your liver markers. They have not significantly changed from your labs last week. Your CT scan shows significant amounts of stool burden throughout your intestinal tract indicating constipation. I am recommending you take a daily dose of MiraLAX for the next week to see if this helps. The radiologist also has some concerns for inflammation around the rectal area. On exam today you do not have any tenderness or any discomfort in this area but you may need further testing or evaluation such as a colonoscopy. I am recommending that you follow-up with your primary care doctor regarding the testing we have done today including follow-up for your CT scan as well as follow-up for your abnormal liver test. I have also included the information for the general surgery practice on [place] Where they do perform colonoscopies and upper endoscopies. Return to the emergency department with any worsening symptoms. MIRALAX 17 g (diluted in 4-8 fluid ounces water, juice) orally once a day Forms: PCP List Discharge Date/Time: 06/03/23 10:12
--- NOTE | 2023-06-03 09:13 | CT Report ---
PROCEDURE: Abdomen/Pelvis W INDICATIONS: generalized abd pain with nausea CONTRAST: 100mliohex 100ml TECHNIQUE: After the administration of intravenous contrast, a CT scan of the abdomen and pelvis was performed. Images were recorded and evaluated at appropriate window settings. Reformats: coronal and sagittal. F or radiation dose reduction, the following was used: automated exposure control, adjustment of mA and /or kV according to patient size. COMPARISON: CT abdomen with contrast dated 11/25/2018 FINDINGS: Image quality: Diagnostic. Lower chest: Unremarkable. Liver: No solid mass. Multiple liver cysts and possibly small hemangiomata. Gallbladder and biliary tree: No radiopaque stones or wall thickening. No biliary dilation. Spleen: No splenomegaly. Pancreas: No pancreatic ductal dilation. Adrenals: No adrenal nodule. Kidneys and ureters: No hydronephrosis. No renal cystic lesion which requires follow up. No solid mas s. Stomach, bowel and peritoneum: No bowel distension. No pathologic free fluid. There is a large diffus e fecal load. There is a suggestion of diffuse distal rectal wall thickening and edema. Reference charisse ge 115 of series 2. Also reference sagittal reformat image 80 of series 6.. Lymph nodes: Paucity of abdominal fat and bowel contrast decreases sensitivity. However, no lymphaden opathy is identified in the abdomen and pelvis. Vessels: No infrarenal aortic aneurysm. PELVIS Reproductive organs: Uterus is likely absent.. Bladder: No abnormal wall thickening, accounting for underdistention. Pelvic lymph nodes: No pelvic adenopathy by size criteria. Bones: No aggressive osseous abnormality. Other: No significant ventral or inguinal hernia. There is also edema involving the perineum.. IMPRESSION: 1. Large diffuse fecal load, possibly indicating constipation. 2. Suggestion of diffuse distal rectal wall thickening and edema, as well as edema involving the samia neum. Findings suggest proctitis as well as perineal inflammation. Abnormal appearance of distal rectum and perineum. Recommend direct visualization of the perineum. Re commend correlation with symptoms. Consider direct visualization of the rectum after acute symptoms r esolve if the patient has not had a relatively recent colonoscopy. Reviewed by: Victoriano Emanuel MD on 06/03/2023 9:12 AM PDT Approved by: Victoriano Emanuel MD on 06/03/2023 9:12 AM PDT Station ID: [id number]
[2023-06-03 10:15] VITALS: BP 128/83; O2SAT 96
[2023-06-03] MEDS: iohexoL-300 100 ML VIAL IVP ONE (12:43)
== END 2023-06-03 10:12 | disposition home or self-care (01) ==
LOC: ED 07:05
DX: R10.84 Generalized abdominal pain (principal); K59.00 Constipation, unspecified; R79.89 Other specified abnormal findings of blood chemistry; K76.89 Other specified diseases of liver; R93.5 Abnormal findings on diagnostic imaging of other abdominal regions, including retroperitoneum
CPT/HCPCS: 36415; 74177; 80053; 83690; 85025; 99284; Q9967

== ENCOUNTER 2023-06-11 16:49 | Outpatient (CLI) | payer BC | END 2023-06-11 16:50 | disposition home or self-care (01) | LOC: LAB 16:49 | PROVIDERS: ATTEND Internal Medicine | DX: K59.00 Constipation, unspecified (principal); R74.8 Abnormal levels of other serum enzymes; K62.89 Other specified diseases of anus and rectum | CPT/HCPCS: 36415; 82105; 82390; 84155; 84165; 86015; 86038; 86376; 86381; 86704; 86706; 86708; 87340 ==

== ENCOUNTER 2023-06-22 07:59 | Outpatient (CLI) | payer BC ==
[2023-06-22 08:39] LABS: ALBUMIN 4.4 g/dL (3.2-5.5); BILIRUBIN,DIRECT 0.12 mg/dL (0.03-0.18); BILIRUBIN,TOTAL 0.6 mg/dL (0.2-1.0)
== END 2023-06-22 08:00 | disposition home or self-care (01) ==
LOC: LAB 07:59
PROVIDERS: ATTEND Internal Medicine
DX: K59.00 Constipation, unspecified (principal); R74.8 Abnormal levels of other serum enzymes
CPT/HCPCS: 36415; 80076

== ENCOUNTER 2023-07-24 14:26 | Outpatient (CLI) | payer BC ==
--- NOTE | 2023-07-25 09:18 | DEXA Report ---
PROCEDURE: Dexa Spine and/or Hip INDICATIONS: SCREENING FOR OSTEOPOROSIS TECHNIQUE: Dual energy x-ray absorptiometry (DXA) was performed on a [employer] REO System. Regions measur ed are the AP Spine, femoral neck, and if needed forearm. COMPARISON: DEXA 02/17/2020 FINDINGS: Lumbar Spine: Bone Mineral Density: 0.930 g/cm/cm,T score: -2.1. There has been no statistically significant anthony e in bone mineral density since the prior study. Left Femoral Neck: Bone Mineral Density: 0.879 g/cm/cm, T score: -1.1. Left Hip: Bone Mineral Density: 0.919 g/cm/cm,T score: -0.7. Since the most recent prior study, there has been a statistically significant increase in bone mineral density by 5.1 percent. (T score greater or equal to -1.0: NORMAL) (T score from -1.1 to -2.4: OSTEOPENIA) (T score less than or equal to -2.5 to: OSTEOPOROSIS) Impression: By WHO criteria, this patient has low bone density (osteopenia). No statistical interval change in bone mineral density of the lumbar spine. Interval statistical incr ease in bone mineral density of the hip. Patients with diagnosis of osteoporosis or osteopenia should have regular bone mineral density assess ment. For those eligible for Medicare, routine testing is allowed once every 2 years. Testing frequ ency can be increased for patients who have rapidly progressing disease or for those who are receivin g medical therapy to restore bone mass. Reviewed by: Ned Alvarado MD on 07/25/2023 9:17 AM PDT Approved by: Ned Alvarado MD on 07/25/2023 9:17 AM PDT Station ID: [id number]
== END 2023-07-24 14:27 | disposition home or self-care (01) ==
LOC: DI 14:26
PROVIDERS: ATTEND Nurse Practitioner Obstetrics & Gynecology
DX: Z13.820 Encounter for screening for osteoporosis (principal); M85.89 Other specified disorders of bone density and structure, multiple sites

== ENCOUNTER 2023-09-24 15:59 | Outpatient (CLI) | payer BC | END 2023-09-24 16:00 | disposition home or self-care (01) | LOC: RT 15:59 | PROVIDERS: ATTEND Orthopaedic Surgery | DX: M18.0 Bilateral primary osteoarthritis of first carpometacarpal joints (principal) | CPT/HCPCS: 93005 ==